=== PATIENT | male | born 1955 | race Caucasian/White ===

== ENCOUNTER → 2016-07-20 | Outpatient (CLI) | payer MEDICARE, OTHER ==
[2016-07-20 10:30] LABS: Blood Urea Nitrogen 11 mg/dL (9-20); Non-African American GFR(MDRD) >60 (>60 ml/min/1.73 sqM)
== END | disposition home or self-care (01) ==
LOC: LABWHC1 09:33
PROVIDERS: ATTEND Orthopaedic Surgery Orthopaedic Surgery of the Spine
DX: M54.2 Cervicalgia (principal); M54.12 Radiculopathy, cervical region; M43.22 Fusion of spine, cervical region; M25.511 Pain in right shoulder; M25.512 Pain in left shoulder; Z98.1 Arthrodesis status
CPT/HCPCS: 36415; 82565; 84520

== ENCOUNTER → 2020-09-10 | Outpatient (CLI) | payer MEDICARE ==
--- NOTE | 2020-09-10 14:04 | XR ---
EXAMINATION TYPE: XR wrist complete RT DATE OF EXAM: 09/10/2020 CLINICAL HISTORY: Pain in the right breast. History of surgery on the wrist 2 years ago for tendon re pair. TECHNIQUE: Frontal, lateral and oblique images of the right wrist are obtained. COMPARISON: No prior is available for comparison. FINDINGS: There is no evidence of acute fracture of the right wrist. There is widening of the scaphol unate joint space with sclerosis of the scaphoid bone. This is suggestive of scapholunate advanced co llapse with proximal migration of the capitate. There is narrowing of the radiocarpal joint space. Na rrowing of the carpometacarpal joint spaces. The distal radius and ulna are intact. IMPRESSION: 1. 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 There is sclerosis of the scaphoid. Osteoarthritic changes of the wrist.
== END | disposition home or self-care (01) ==
LOC: RADXRMAIN 13:33
PROVIDERS: ATTEND Nurse Practitioner
DX: M19.031 Primary osteoarthritis, right wrist (principal); M89.8X4 Other specified disorders of bone, hand

== ENCOUNTER 2020-12-21 17:20 | Emergency (ER) | payer MEDICARE ==
[2020-12-21 17:38] VITALS: RESP 18; TEMP 97.5
[2020-12-21] MEDS ORDERED: HYDROmorphone 1 MG/ML 1 ML SYRINGE IM STA (18:07)
[2020-12-21] MEDS ORDERED: KETOROLAC 15 MG/ML 1 ML VIAL IM STA (18:07)
--- NOTE | 2020-12-21 18:29 | ED ---
General Adult HPI - General Chief complaint: Recheck/Abnormal Lab/Rx Stated complaint: dislocated shoulder Time Seen by Provider: 12/21/20 17:53 Source: patient, RN notes reviewed, old records reviewed Mode of arrival: ambulatory Limitations: no limitations - History of Present Illness Initial comments: 65-year-old male presents with right shoulder pain. Patient was seen at outside hospital, diagnosed with a shoulder dislocation. He was sent home in a sling. He states he was taking her shirt off and believes he may have re-dislocated her shoulder. He has not had a previous dislocation prior to today. He states this didn't dislocate earlier while he was carrying some heavy items. No fall. Patient required sedation for dislocation reduction at outside hospital. - Related Data Home Medications Medication Instructions Recorded Confirmed Cyclobenzaprine [Flexeril] 10 mg PO TID PRN 11/26/13 12/05/15 Zolpidem [Ambien] 12.5 mg PO HS 11/26/13 12/05/15 Ibuprofen [Motrin] 800 mg PO Q6H PRN 12/03/15 12/05/15 Previous Rx's Medication Instructions Recorded HYDROcodone/APAP 10-325MG [[place] 1 tab PO Q6H PRN #90 tab 01/15/15 10-325] Cephalexin [Keflex] 500 mg PO Q8HR #15 cap 12/05/15 HYDROcodone/APAP 10-325MG [[place] 1 - 2 tab PO Q4-6H PRN #60 tab 12/05/15 10-325] Sennosides-Docusate Sodium 2 tab PO DAILY #30 tablet 12/05/15 [Senokot-S] Metoprolol Tartrate [Lopressor] 12.5 mg PO BID #60 dose 12/06/15 Allergies Allergy/AdvReac Type Severity Reaction Status Date / Time No Known Allergies Allergy Verified 12/21/20 17:36 Review of Systems ROS Statement: Those systems with pertinent positive or pertinent negative responses have been documented in the HPI. ROS Other: All systems not noted in ROS Statement are negative. Past Medical History Past Medical History: Cancer, Hyperlipidemia, Osteoarthritis (OA) Additional Past Medical History / Comment(s): "MELANOMA AND COLON CANCER-biopsy treatmentapproximately 3-4 years ago" History of Any Multi-Drug Resistant Organisms: None Reported Past Surgical History: Joint Replacement, Orthopedic Surgery Additional Past Surgical History / Comment(s): BILATERAL HIP REPLACEMENT , colonoscopy-POLYPECTOMY FOR CANCER" RIGHT SHOULDER,HEMORRHOIDECTOMY. MELANOMA LEFT HAND. Past Anesthesia/Blood Transfusion Reactions: No Reported Reaction Past Psychological History: No Psychological Hx Reported Smoking Status: Current every day smoker Past Alcohol Use History: None Reported Past Drug Use History: None Reported General Exam Limitations: no limitations General appearance: alert, in no apparent distress Head exam: Present: atraumatic, normocephalic Eye exam: Present: normal appearance, PERRL ENT exam: Present: normal exam Neck exam: Present: normal inspection. Absent: tenderness, meningismus Respiratory exam: Present: normal lung sounds bilaterally. Absent: respiratory distress, wheezes Cardiovascular Exam: Present: regular rate, normal rhythm GI/Abdominal exam: Present: soft. Absent: distended, tenderness, guarding Extremities exam: Absent: full ROM (Suspect anterior shoulder dislocation on the right. Distal pulses intact.) Course Vital Signs 12/21/20 17:36 Temperature 97.5 F L Pulse Rate 89 Respiratory 18 Rate Blood Pressure 189/96 O2 Sat by Pulse 99 Oximetry Procedures - Orthopedic Joint Reduction Joint #1 Consent Obtained: verbal consent Side: right Joint Reduction Location: shoulder Analgesia: other (IM Dilaudid) Shoulder Technique Used (if applicable): traction/counter-traction Post-Reduction Neuro Exam: intact Post-Reduction Vascular Exam: intact Post Reduction X-Ray Obtained: Yes Post Reduction X-Ray Results: reduced Splint Applied: Yes Patient Tolerated Procedure: well Medical Decision Making - Medical Decision Making 65-year-old male with anterior shoulder dislocation on the right. Patient given IM Dilaudid, direct manipulation and external rotation applied with satisfactory reduction. Patient is placed in a sling. He is given orthopedic follow-up. Disposition Clinical Impression: Shoulder dislocation, recurrent Disposition: HOME SELF-CARE Condition: Good Instructions (If sedation given, give patient instructions): Shoulder Dislocation (ED) Is patient prescribed a controlled substance at d/c from ED?: No Referrals: Duy Hanson MD [Primary Care Provider] - 1-2 days Momo Pereira DO [Doctor of Osteopathic Medicine] - 1-2 days Time of Disposition: 18:48
--- NOTE | 2020-12-21 18:36 | XR ---
EXAMINATION TYPE: XR shoulder complete RT DATE OF EXAM: 12/21/2020 COMPARISON: 12/24/2014 HISTORY: Dislocation. Pain. TECHNIQUE: 3 views FINDINGS: There is anterior dislocation of the glenohumeral joint. I see no fracture line. There is s light widening of the AC joint space. IMPRESSION: Anterior dislocation of the shoulder joint is a change compared to old exam.
[2020-12-21 19:07] VITALS: BP 166/96; PULSE 92
--- NOTE | 2020-12-21 19:19 | XR ---
EXAMINATION TYPE: XR shoulder limited RT DATE OF EXAM: 12/21/2020 COMPARISON: Today HISTORY: Post reduction TECHNIQUE: Single view FINDINGS: There appears to be anatomic position of the glenohumeral joint. I see no fracture line. IMPRESSION: Anatomic reduction. No fracture seen. Mild widening of the AC joint space unchanged.
== END 2020-12-21 19:00 | disposition home or self-care (01) ==
LOC: EC 17:20
DX: S43.004A Unspecified dislocation of right shoulder joint, initial encounter (principal); M19.90 Unspecified osteoarthritis, unspecified site; E78.5 Hyperlipidemia, unspecified; F17.200 Nicotine dependence, unspecified, uncomplicated; Z85.820 Personal history of malignant melanoma of skin; Z85.038 Personal history of other malignant neoplasm of large intestine; Z96.643 Presence of artificial hip joint, bilateral; X58.XXXA Exposure to other specified factors, initial encounter
CPT/HCPCS: 99283; 96372; 23650; 73020; 73030; J1170; J1885

== ENCOUNTER 2021-01-19 01:44 | Emergency (ER) | payer MEDICARE ==
[2021-01-19 02:05] VITALS: RESP 18; TEMP 97
--- NOTE | 2021-01-19 03:02 | XR ---
EXAMINATION TYPE: XR shoulder limited RT DATE OF EXAM: 01/19/2021 COMPARISON: 12/21/2020 HISTORY: Right shoulder pain TECHNIQUE: 2 views FINDINGS: There is anterior dislocation of the glenohumeral joint. There is no sign of a fracture. Th ere is some widening of the AC joint space. IMPRESSION: Anterior shoulder joint dislocation is new compared to old exam. There is some widening of the AC joint consistent with old ligamentous injury without change.
[2021-01-19] MEDS ORDERED: PROPOFOL 10 MG/ML 20 ML VIAL IV ONE (04:09)
[2021-01-19] MEDS ORDERED: SODIUM CHLORIDE 0.9% 500 ML 500 ML IV STA (04:09)
[2021-01-19] MEDS ORDERED: HYDROmorphone 1 MG/ML 1 ML SYRINGE IM STA (04:10)
--- NOTE | 2021-01-19 04:53 | ED ---
Upper Extremity HPI - General Chief Complaint: Extremity Injury, Upper Stated Complaint: RT shoulder dislocation Time Seen by Provider: 01/19/21 04:08 Source: patient, RN notes reviewed, old records reviewed Mode of arrival: wheelchair Limitations: no limitations - History of Present Illness Initial Comments: This is a 65-year-old male to the emergency department today. Patient presents today for evaluation of recurrent right shoulder dislocation with history of right shoulder dislocation and right shoulder surgery. Patient states he was sleeping in bed when he woke up with his shoulder dislocated. Pain is severe with inability to move right shoulder no other complaints or injuries. MD Complaint: Injury to:: right, shoulder -: hour(s) Other Extremity Injury: Shoulder: Right Other Injuries: none Handedness: right Place: home Severity scale (1-10): 10 Improves With: none Worsens With: none Context: direct blow (Occurred fall sleeping) Associated Symptoms: denies other symptoms Treatments Prior to Arrival: splint - Related Data Home Medications Medication Instructions Recorded Confirmed Cyclobenzaprine [Flexeril] 10 mg PO TID PRN 11/26/13 12/05/15 Zolpidem [Ambien] 12.5 mg PO HS 11/26/13 12/05/15 Ibuprofen [Motrin] 800 mg PO Q6H PRN 12/03/15 12/05/15 Previous Rx's Medication Instructions Recorded HYDROcodone/APAP 10-325MG [[place] 1 tab PO Q6H PRN #90 tab 01/15/15 10-325] Cephalexin [Keflex] 500 mg PO Q8HR #15 cap 12/05/15 HYDROcodone/APAP 10-325MG [[place] 1 - 2 tab PO Q4-6H PRN #60 tab 12/05/15 10-325] Sennosides-Docusate Sodium 2 tab PO DAILY #30 tablet 12/05/15 [Senokot-S] Metoprolol Tartrate [Lopressor] 12.5 mg PO BID #60 dose 12/06/15 Allergies Allergy/AdvReac Type Severity Reaction Status Date / Time No Known Allergies Allergy Verified 01/27/21 15:30 Review of Systems ROS Statement: Those systems with pertinent positive or pertinent negative responses have been documented in the HPI. ROS Other: All systems not noted in ROS Statement are negative. Past Medical History Past Medical History: Cancer, Hyperlipidemia, Osteoarthritis (OA) Additional Past Medical History / Comment(s): "MELANOMA AND COLON CANCER-biopsy treatmentapproximately 3-4 years ago" History of Any Multi-Drug Resistant Organisms: None Reported Past Surgical History: Joint Replacement, Orthopedic Surgery Additional Past Surgical History / Comment(s): BILATERAL HIP REPLACEMENT , colonoscopy-POLYPECTOMY FOR CANCER" RIGHT SHOULDER,HEMORRHOIDECTOMY. MELANOMA LEFT HAND. Past Anesthesia/Blood Transfusion Reactions: No Reported Reaction Past Psychological History: No Psychological Hx Reported Smoking Status: Current every day smoker Past Alcohol Use History: None Reported Past Drug Use History: None Reported General Exam Limitations: no limitations General appearance: alert, in no apparent distress Head exam: Present: atraumatic, normocephalic, normal inspection Eye exam: Present: normal appearance, PERRL, EOMI. Absent: scleral icterus, conjunctival injection, periorbital swelling ENT exam: Present: normal exam, mucous membranes moist Neck exam: Present: normal inspection. Absent: tenderness, meningismus, lymphadenopathy Respiratory exam: Present: normal lung sounds bilaterally. Absent: respiratory distress, wheezes, rales, rhonchi, stridor Cardiovascular Exam: Present: regular rate, normal rhythm, normal heart sounds. Absent: systolic murmur, diastolic murmur, rubs, gallop, clicks GI/Abdominal exam: Present: soft, normal bowel sounds. Absent: distended, tenderness, guarding, rebound, rigid Extremities exam: Present: normal inspection, tenderness, normal capillary refill, other (Obvious right shoulder dislocation). Absent: full ROM, pedal edema, joint swelling, calf tenderness Back exam: Present: normal inspection Neurological exam: Present: alert, oriented X3, CN II-XII intact Psychiatric exam: Present: normal affect, normal mood Skin exam: Present: warm, dry, intact, normal color. Absent: rash Course Vital Signs 01/19/21 01/19/21 01/19/21 02:02 04:48 04:50 Temperature 97.0 F L Pulse Rate 100 78 74 Respiratory 18 18 18 Rate Blood Pressure 161/100 157/102 O2 Sat by Pulse 97 99 99 Oximetry 01/19/21 01/19/21 01/19/21 04:55 05:00 05:15 Temperature Pulse Rate 103 H 79 77 Respiratory 18 18 18 Rate Blood Pressure 106/76 114/83 147/88 O2 Sat by Pulse 99 99 98 Oximetry 01/19/21 05:45 Temperature Pulse Rate 87 Respiratory 18 Rate Blood Pressure 129/83 O2 Sat by Pulse 98 Oximetry - Reevaluation(s) Reevaluation #1: Medical record is reviewed Patient symptoms are significantly improved here in the ER Patient informed results and questions answered Procedures - Orthopedic Joint Reduction Joint #1 Consent Obtained: verbal consent Side: right Joint Reduction Location: shoulder Analgesia: procedural sedation Shoulder Technique Used (if applicable): traction/counter-traction, scapula manipulation, external rotation Post-Reduction Neuro Exam: intact Post-Reduction Vascular Exam: intact Post Reduction X-Ray Obtained: Yes Post Reduction X-Ray Results: reduced Splint Applied: Yes Patient Tolerated Procedure: well - Procedural Sedation Procedural Sedation Start Time: 04:30 Procedural Sedation Stop Time: 05:00 Indications: fracture/dislocation reduction ASA Class: I Mallampati Airway Score: 1 Preparation: ekg monitor applied, pulse oximeter, capnometry used IV Propofol Dose (mgs): 200 Complications: none Interventions: oxygen applied Patient Tolerated Procedure: well Medical Decision Making - Medical Decision Making 65 male to the emergency department stay. Patient Dese for evaluation of shoulder pain significant shoulder pain right shoulder pain secondary dislocation shoulder relocated and patient can be discharged home - Radiology Data Radiology results: report reviewed (X-ray shows shoulder dislocation repeat shows relocation), image reviewed Disposition Clinical Impression: Shoulder dislocation, recurrent, Dislocation of shoulder region, Recurrent dislocation, right shoulder Disposition: HOME SELF-CARE Condition: Good Instructions (If sedation given, give patient instructions): Shoulder Dislocation (ED), Moderate Sedation (ED) Is patient prescribed a controlled substance at d/c from ED?: No Referrals: Duy Hanson MD [Primary Care Provider] - 1-2 days
--- NOTE | 2021-01-19 05:35 | XR ---
EXAM: XR Right Shoulder Complete, 2 or More Views CLINICAL HISTORY: ITS.REASON XR Reason: Dislocation/ Surgical correction TECHNIQUE: Two or more views of the right shoulder. COMPARISON: X-ray of the right shoulder performed earlier same day. FINDINGS: Interval reduction of previously seen right shoulder dislocation. Right humeral head now within the glenoid. IMPRESSION: Interval reduction of previously seen right shoulder dislocation.
[2021-01-19 05:55] VITALS: BP 129/83; PULSE 87
== END 2021-01-19 06:02 | disposition home or self-care (01) ==
LOC: EC 01:44
DX: S43.004A Unspecified dislocation of right shoulder joint, initial encounter (principal); E78.5 Hyperlipidemia, unspecified; M19.90 Unspecified osteoarthritis, unspecified site; F17.200 Nicotine dependence, unspecified, uncomplicated; Z85.038 Personal history of other malignant neoplasm of large intestine; X58.XXXA Exposure to other specified factors, initial encounter
CPT/HCPCS: 99283; 96372; 23650; 99152; 99153; 73020; 73030; L3670; J1170; J2704

== ENCOUNTER 2021-01-27 15:05 | Emergency (ER) | payer MEDICARE ==
[2021-01-27 15:29] VITALS: TEMP 97.9
--- NOTE | 2021-01-27 15:46 | XR ---
EXAMINATION TYPE: XR shoulder limited RT DATE OF EXAM: 01/27/2021 CLINICAL HISTORY: Pain, suspected dislocation TECHNIQUE: 2 views of the right shoulder are attempted. COMPARISON: Right shoulder x-ray 8 days ago. FINDINGS: There is recurrent anterior dislocation with inferior medial positioning of the humeral he ad relative to glenoid. The [place] osseous structures are demineralized. Moderate AC joint widening redemonstrated. The visualized ribs are intact . IMPRESSION: There is recurrent anterior glenohumeral joint dislocation.
[2021-01-27] MEDS ORDERED: PROPOFOL 10 MG/ML 20 ML VIAL IV ONE (17:18)
[2021-01-27] MEDS ORDERED: HYDROmorphone 1 MG/ML 1 ML SYRINGE IM STA (17:20)
--- NOTE | 2021-01-27 17:41 | ED ---
General Adult HPI - General Chief complaint: Extremity Injury, Upper Stated complaint: R shoulder pain Time Seen by Provider: 01/27/21 17:17 Source: patient Mode of arrival: ambulatory Limitations: no limitations - History of Present Illness Initial comments: Dictation was produced using [employer] dictation software. please excuse any grammatical, word or spelling errors. Chief Complaint: 65-year-old male with frequent shoulder dislocations presents to the emergency department for right shoulder dislocation History of Present Illness: 65-year-old male at 3 PM today he was cleaning back one of his vehicle when he dislocated his right shoulder. Patient has history of with rotator cuff muscles. This is his fourth dislocation this month he reports. Denies any numbness and only to the extremity. Patient was told that he needs to get a total shoulder replacement in order to prevent any recurrent shoulder dislocations. The ROS documented in this emergency department record has been reviewed and confirmed by me. Those systems with pertinent positive or negative responses have been documented in the HPI. All other systems are other negative and/or noncontributory. PHYSICAL EXAM: General Impression: Alert and oriented x3, acute distress secondary her pain HEENT: Normocephalic atraumatic, extra-ocular movements intact, pupils equal and reactive to light bilaterally, mucous membranes moist. Cardiovascular: Heart regular rate and rhythm Chest: Able to complete full sentences, no retractions, no tachypnea Abdomen: abdomen soft, non-tender, non-distended, no organomegaly Musculoskeletal: Pulses present and equal in all extremities, no peripheral edema, positive right sulcus sign at the shoulder Motor: no focal deficits noted Neurological: CN II-XII grossly intact, no focal motor or sensory deficits noted Skin: Intact with no visualized rashes ED course: 65-year-old male presents to the emergency department for shoulder dislocation. He has strong history of shoulder dislocations. Patient is given 2 mg of IM Dilaudid. Reduction was attempted without sedation and unsuccessful. Vital signs upon arrival are within acceptable. Procedural sedation was use to reduce patient's shoulder dislocation. Post reduction x-rays unremarkable. Shows successful reduction. Patient placed in right upper extremity sling. Patient advised to follow-up with his orthopedic doctor. - Related Data Home Medications Medication Instructions Recorded Confirmed Cyclobenzaprine [Flexeril] 10 mg PO TID PRN 11/26/13 12/05/15 Zolpidem [Ambien] 12.5 mg PO HS 11/26/13 12/05/15 Ibuprofen [Motrin] 800 mg PO Q6H PRN 12/03/15 12/05/15 Previous Rx's Medication Instructions Recorded HYDROcodone/APAP 10-325MG [[place] 1 tab PO Q6H PRN #90 tab 01/15/15 10-325] Cephalexin [Keflex] 500 mg PO Q8HR #15 cap 12/05/15 HYDROcodone/APAP 10-325MG [[place] 1 - 2 tab PO Q4-6H PRN #60 tab 12/05/15 10-325] Sennosides-Docusate Sodium 2 tab PO DAILY #30 tablet 12/05/15 [Senokot-S] Metoprolol Tartrate [Lopressor] 12.5 mg PO BID #60 dose 12/06/15 Allergies Allergy/AdvReac Type Severity Reaction Status Date / Time No Known Allergies Allergy Verified 01/27/21 15:30 Review of Systems ROS Statement: Those systems with pertinent positive or pertinent negative responses have been documented in the HPI. ROS Other: All systems not noted in ROS Statement are negative. Past Medical History Past Medical History: Cancer, Hyperlipidemia, Osteoarthritis (OA) Additional Past Medical History / Comment(s): "MELANOMA AND COLON CANCER-biopsy treatmentapproximately 3-4 years ago" History of Any Multi-Drug Resistant Organisms: None Reported Past Surgical History: Joint Replacement, Orthopedic Surgery Additional Past Surgical History / Comment(s): BILATERAL HIP REPLACEMENT , colonoscopy-POLYPECTOMY FOR CANCER" RIGHT SHOULDER,HEMORRHOIDECTOMY. MELANOMA LEFT HAND. Past Anesthesia/Blood Transfusion Reactions: No Reported Reaction Past Psychological History: No Psychological Hx Reported Smoking Status: Current every day smoker Past Alcohol Use History: None Reported Past Drug Use History: None Reported General Exam Limitations: no limitations Course Vital Signs 01/27/21 01/27/21 01/27/21 15:27 18:08 18:10 Temperature 97.9 F Pulse Rate 79 77 87 Respiratory 19 18 18 Rate Blood Pressure 174/100 162/90 162/93 O2 Sat by Pulse 98 98 97 Oximetry 01/27/21 01/27/21 01/27/21 18:12 18:40 19:04 Temperature Pulse Rate 82 74 77 Respiratory 18 18 18 Rate Blood Pressure 160/88 157/98 147/94 O2 Sat by Pulse 97 98 97 Oximetry Procedures - Orthopedic Joint Reduction Joint #1 Consent Obtained: verbal consent, written consent Side: right Joint Reduction Location: shoulder Analgesia: procedural sedation Shoulder Technique Used (if applicable): external rotation Post-Reduction Neuro Exam: intact Post-Reduction Vascular Exam: intact Post Reduction X-Ray Obtained: Yes Post Reduction X-Ray Results: reduced Splint Applied: Yes Patient Tolerated Procedure: well - Procedural Sedation Procedural Sedation Start Time: 18:08 Procedural Sedation Stop Time: 18:12 Indications: fracture/dislocation reduction ASA Class: II Mallampati Airway Score: 2 Preparation: monitoring analyst applied, pulse oximeter, supplemental O2 applied IV Propofol Dose (mgs): 75 Complications: none Patient Tolerated Procedure: well Disposition Clinical Impression: Shoulder dislocation Disposition: HOME SELF-CARE Condition: Good Instructions (If sedation given, give patient instructions): Shoulder Dislocation (ED) Is patient prescribed a controlled substance at d/c from ED?: No Referrals: Duy Hanson MD [Primary Care Provider] - 1-2 days
[2021-01-27 18:15] VITALS: RESP 18
--- NOTE | 2021-01-27 18:42 | XR ---
EXAMINATION TYPE: XR shoulder limited RT DATE OF EXAM: 01/27/2021 COMPARISON: Today HISTORY: Post reduction TECHNIQUE: Single view FINDINGS: There is anatomic position of the glenohumeral joint. I see no fracture line. IMPRESSION: Anatomic reduction of the right shoulder joint.
[2021-01-27 19:46] VITALS: BP 142/72; PULSE 74
== END 2021-01-27 19:46 | disposition home or self-care (01) ==
LOC: EC 15:05
DX: S43.004A Unspecified dislocation of right shoulder joint, initial encounter (principal); E78.5 Hyperlipidemia, unspecified; M19.90 Unspecified osteoarthritis, unspecified site; F17.200 Nicotine dependence, unspecified, uncomplicated; Z79.1 Long term (current) use of non-steroidal anti-inflammatories (NSAID); Z79.899 Other long term (current) drug therapy; X50.1XXA Overexertion from prolonged static or awkward postures, initial encounter
CPT/HCPCS: 73020; 23650; 99283; 96372; J1170; J2704

== ENCOUNTER 2021-02-27 14:59 | Emergency (ER) | payer MEDICARE ==
[2021-02-27 15:23] VITALS: TEMP 98.6
--- NOTE | 2021-02-27 15:45 | ED ---
General Adult HPI - General Chief complaint: Extremity Problem,Nontraumatic Stated complaint: R Shoulder Dislocated Time Seen by Provider: 02/27/21 15:26 Source: patient Mode of arrival: ambulatory Limitations: no limitations - History of Present Illness Initial comments: Dictation was produced using [employer] dictation software. please excuse any gra mmatical, word or spelling errors. Chief Complaint: 65-year-old male presents emergency department for shoulder dislocation History of Present Illness: Patient 65-year-old male presents to the emergency department for shoulder dislocation. Patient has had multiple and attending several shoulder dislocations within the last several months. I see this patient before for same issue. Patient states he was sitting up past her seat and tried to put his arm up on the windowsill. He brought his arm back down and his shoulder popped out of place. Prescription approximately 20 minutes ago. He states that next month he has a total shoulder replacement surgery to prevent any further shoulder dislocations. The ROS documented in this emergency department record has been reviewed and confirmed by me. Those systems with pertinent positive or negative responses have been documented in the HPI. All other systems are other negative and/or noncontributory. PHYSICAL EXAM: General Impression: Alert and oriented x3, not in acute distress HEENT: Normocephalic atraumatic, extra-ocular movements intact, pupils equal and reactive to light bilaterally, mucous membranes moist. Cardiovascular: Heart regular rate and rhythm Chest: Able to complete full sentences, no retractions, no tachypnea Abdomen: abdomen soft, non-tender, non-distended, no organomegaly Musculoskeletal: Pulses present and equal in all extremities, no peripheral edema, deep sulcus sign to the right anterior shoulder Motor: no focal deficits noted Neurological: CN II-XII grossly intact, no focal motor or sensory deficits noted Skin: Intact with no visualized rashes Psych: Normal affect and mood ED course: 65-year-old male presents emergency department for recurrent shoulder dislocation. Vital signs upon arrival are within acceptable limits. X-ray shows right anterior shoulder dislocation. Procedural sedation was performed and shoulder dislocation is reduced. Patient observed in the emergency Depa rtment until sedation wore off. Patient stable for discharge. - Related Data Home Medications Medication Instructions Recorded Confirmed Cyclobenzaprine [Flexeril] 10 mg PO TID PRN 11/26/12/05/15 Zolpidem [Ambien] 12.5 mg PO HS 11/26/13 12/05/15 Ibuprofen [Motrin] 800 mg PO Q6H PRN 12/03/15 12/05/15 Previous Rx's Medication Instructions Recorded HYDROcodone/APAP 10-325MG [[place] 1 tab PO Q6H PRN #90 tab 01/15/15 10-325] Cephalexin [Keflex] 500 mg PO Q8HR #15 cap 12/05/15 HYDROcodone/APAP 10-325MG [[place] 1 - 2 tab PO Q4-6H PRN #60 tab 12/05/15 10-325] Sennosides-Docusate Sodium 2 tab PO DAILY #30 tablet 12/05/15 [Senokot-S] Metoprolol Tartrate [Lopressor] 12.5 mg PO BID #60 dose 12/06/15 Allergies Allergy/AdvReac Type Severity Reaction Status Date / Time No Known Allergies Allergy Verified 02/27/21 15:24 Review of Systems ROS Statement: Those systems with pertinent positive or pertinent negative responses have been documented in the HPI. ROS Other: All systems not noted in ROS Statement are negative. Past Medical History Past Medical History: Cancer, Hyperlipidemia, Osteoarthritis (OA) Additional Past Medical History / Comment(s): "MELANOMA AND COLON CANCER-biopsy treatmentapproximately 3-4 years ago" History of Any Multi-Drug Resistant Organisms: None Reported Past Surgical History: Joint Replacement, Orthopedic Surgery Additional Past Surgical History / Comment(s): BILATERAL HIP REPLACEMENT , colonoscopy-POLYPECTOMY FOR CANCER" RIGHT SHOULDER,HEMORRHOIDECTOMY. MELANOMA LEFT HAND. Past Anesthesia/Blood Transfusion Reactions: No Reported Reaction Past Psychological History: No Psychological Hx Reported Smoking Status: Current every day smoker Past Alcohol Use History: None Reported Past Drug Use History: None Reported General Exam Limitations: no limitations Course Vital Signs 02/27/21 02/27/21 02/27/21 15:21 16:08 16:09 Temperature 98.6 F Pulse Rate 92 85 86 Respiratory 19 18 18 Rate Blood Pressure 158/102 139/85 142/96 O2 Sat by Pulse 98 98 99 Oximetry 02/27/21 02/27/21 16:14 16:29 Temperature Pulse Rate 82 71 Respiratory 18 18 Rate Blood Pressure 147/80 137/93 O2 Sat by Pulse 99 98 Oximetry Procedures - Orthopedic Joint Reduction Joint #1 Consent Obtained: verbal consent, written consent Side: right Joint Reduction Location: shoulder Analgesia: procedural sedation Shoulder Technique Used (if applicable): traction/counter-traction Post-Reduction Neuro Exam: intact Post-Reduction Vascular Exam: intact Post Reduction X-Ray Obtained: Yes Post Reduction X-Ray Results: reduced Splint Applied: Yes Patient Tolerated Procedure: well - Procedural Sedation Procedural Sedation Start Time: 16:08 Procedural Sedation Stop Time: 16:09 Indications: fracture/dislocation reduction ASA Class: II Mallampati Airway Score: 2 Preparation: monitor car operator applied, pulse oximeter, capnometry used, supplemental O2 applied, suction/airway equipment at bedside, IV secured IV Propofol Dose (mgs): 60 Complications: none Patient Tolerated Procedure: well Disposition Clinical Impression: Shoulder dislocation, recurrent Disposition: HOME SELF-CARE Condition: Fair Instructions (If sedation given, give patient instructions): Moderate Sedation (ED), Shoulder Dislocation (ED) Is patient prescribed a controlled substance at d/c from ED?: No Referrals: Floyd Kelly MD [STAFF PHYSICIAN] - 1-2 days
--- NOTE | 2021-02-27 15:58 | XR ---
EXAMINATION TYPE: XR shoulder limited RT DATE OF EXAM: 02/27/2021 COMPARISON: 01/27/2021 HISTORY: Pain TECHNIQUE: 2 view FINDINGS: There is anterior dislocation of the glenohumeral joint. There is some separation of the AC joint space. There is no evidence for fracture. IMPRESSION: Anterior shoulder joint dislocation.
[2021-02-27] MEDS: PROPOFOL 10 MG/ML 20 ML VIAL IV ONE (16:08)
[2021-02-27 16:16] VITALS: RESP 18
--- NOTE | 2021-02-27 16:43 | XR ---
EXAMINATION TYPE: XR shoulder limited RT DATE OF EXAM: 02/27/2021 COMPARISON: Today HISTORY: Post reduction TECHNIQUE: Single view FINDINGS: There is anatomic position of the glenohumeral joint. I see no fracture line. There is oste openia. There is subacromial joint space narrowing. IMPRESSION: Anatomic reduction.
[2021-02-27 17:59] VITALS: BP 144/86; PULSE 76
== END 2021-02-27 17:30 | disposition home or self-care (01) ==
LOC: EC 14:59
DX: M24.411 Recurrent dislocation, right shoulder (principal); E78.5 Hyperlipidemia, unspecified; M19.90 Unspecified osteoarthritis, unspecified site; F17.200 Nicotine dependence, unspecified, uncomplicated; Z79.1 Long term (current) use of non-steroidal anti-inflammatories (NSAID); Z79.899 Other long term (current) drug therapy
CPT/HCPCS: 73020; 23650; 99283; J2704

== ENCOUNTER → 2021-03-09 | Outpatient (CLI) | payer MEDICARE | END | disposition home or self-care (01) | LOC: LABWHC1 11:00 | PROVIDERS: ATTEND Family Medicine | DX: I10 Essential (primary) hypertension (principal) | CPT/HCPCS: 36415; 93005 ==

== ENCOUNTER 2021-03-19 08:50 | Day surgery (SDC) | payer MEDICARE ==
[2021-03-11 10:14] VITALS: BMI 26.3
[~2021-03-19 08:50] MED LIST: ACETAMINOPHEN TAB 500 MG TAB PO PRN; DEXAMETHASONE SOD PHOSPHATE 4 MG/ML 1 ML VIAL IV ONE; GABAPENTIN 300 MG CAP PO PRN; LIDOCAINE 1% (10MG/ML) FOR IV START INTRADERMA PRN; MELOXICAM 7.5 MG TAB PO PRN; ONDANSETRON 4 MG/2 ML VIAL IVP ONE; ONDANSETRON 4 MG/2 ML VIAL IVP PRN; TRANEXAMIC ACID 1,000 MG in SODIUM CHLORIDE 0.9% 100 ML IVPB PRN
[2021-03-19] MEDS: LACTATED RINGERS 1,000 ML IV SCH ×3 (09:32→23:19)
[2021-03-19] MEDS ORDERED: MIDAZOLAM 2 MG/2 ML VIAL IVP ONE (10:08)
[2021-03-19] MEDS ORDERED: ONDANSETRON 4 MG/2 ML VIAL IVP PRN (10:31)
[2021-03-19] MEDS ORDERED: HYDROmorphone 0.2 MG/1 ML SYRINGE IVP PRN (10:31)
[2021-03-19] MEDS ORDERED: PROCHLORPERAZINE SUPPOSITORY 25 MG SUPP RECTAL PRN (10:31)
[2021-03-19] MEDS ORDERED: hydrOXYzine pamoate 25 MG CAP PO PRN (10:31)
[2021-03-19] MEDS ORDERED: diphenhydrAMINE 25 MG CAP PO PRN (10:31)
[2021-03-19] MEDS ORDERED: METOCLOPRAMIDE 5 MG/ML 2 ML VIAL IVP PRN (10:31)
[2021-03-19] MEDS ORDERED: HYDROmorphone 0.5 MG/0.5 ML SYRINGE IVP PRN ×2 (10:31)
[2021-03-19] MEDS ORDERED: SENNOSIDES-DOCUSATE SODIUM 1 EACH TAB PO PRN (10:31)
[2021-03-19] MEDS ORDERED: oxyCODONE-APAP 7.5-325MG 1 EACH TAB PO PRN ×2 (10:35)
[2021-03-19] MEDS ORDERED: SODIUM CHLORIDE 0.9% 100 ML BAG ONE (10:59)
[2021-03-19] MEDS ORDERED: ROCURONIUM 10 MG/ML (5 ML VIAL) IV ONE (10:59)
[2021-03-19] MEDS ORDERED: SUGAMMADEX SODIUM 500 MG/5 ML SDV IV ONE (10:59)
[2021-03-19] MEDS ORDERED: PHENYLEPHRINE-0.9% NACL SYG 1,000 MCG/10 ML SYRINGE ONE (10:59)
[2021-03-19] MEDS ORDERED: ROPIVACAINE 5 MG/ML 30 ML VIAL ONE (10:59)
[2021-03-19] MEDS ORDERED: SUCCINYLCHOLINE CHLORIDE 100 MG/5 ML SYR IV ONE (10:59)
[2021-03-19] MEDS ORDERED: fentaNYL (PF) 50 MCG/ML 2 ML AMP ONE (10:59)
[2021-03-19] MEDS ORDERED: TRANEXAMIC ACID 1,000 MG/10 ML VIAL ONE (10:59)
[2021-03-19] MEDS ORDERED: PROPOFOL 10 MG/ML 20 ML VIAL IV ONE (10:59)
[2021-03-19] MEDS ORDERED: VANCOMYCIN 1,000 MG VIAL MISCELLANE ONE (11:41)
--- NOTE | 2021-03-19 12:47 | P.ANPRN ---
Procedure Note - Anesthesia - Nerve Block Performed Right Interscalene Single Time Out Performed: Yes ([id number]) Date of Procedure: 03/19/21 Procedure Start Time: 10:08 Procedure Stop Time: 10:12 Location of Patient: PreOp Indication: Acute Post-Operative Pain, Requested by Surgeon Specifically requested for management of pain by DrJaye: Floyd Kelly Sedation Type: Sedate with meaningful contact maintained Preparation: Sterile Prep Position: Supine Catheter: None Needle Types: Pajunk Needle Gauge: 21 Ultrasound used to visualize needle placement: Yes Ultrasound used to observe medication spread: Yes Injectate: 0.5% Ropivacaine (see comment for volume) (30cc) Blood Aspirated: No Pain Paresthesia on Injection Noted: No Resistance on Injection: Normal Image Stored and Saved: Yes Events: Uneventful and Well Tolerated
--- NOTE | 2021-03-19 13:20 | XR ---
EXAMINATION TYPE: XR shoulder limited RT DATE OF EXAM: 03/19/2021 COMPARISON: 02/27/2021 HISTORY: 65-year-old male postoperative evaluation TECHNIQUE: Single portable AP view FINDINGS: Images show placement of reverse right total shoulder arthroplasty. Both glenosphere and humeral stem components of the prosthesis appear well seated without periprosthetic fracture. Alignment appears a ppropriate. Soft tissue air related to recent operation. A surgical drain is present. IMPRESSION: Uncomplicated postoperative appearance reverse right total shoulder arthroplasty.
[2021-03-19] MEDS: HYDROmorphone 0.5 MG/0.5 ML SYRINGE IVP PRN ×2 (13:24→13:37)
[2021-03-19] MEDS ORDERED: LACTATED RINGERS 1,000 ML IV ONE (15:28)
--- NOTE | 2021-03-19 21:28 | OP ---
OPERATIVE REPORT DATE OF OPERATION: 03/19/2021 SURGEON: Floyd Kelly MD. DINKEY PRESS OPERATOR: [employer]o [place]. PREOPERATIVE DIAGNOSIS: Right shoulder advanced rotator cuff arthropathy. POSTOPERATIVE DIAGNOSIS: Right shoulder advanced rotator cuff arthropathy. OPERATION: Right reverse total shoulder arthroplasty. ANESTHESIA: General endotracheal. ESTIMATED BLOOD LOSS: Was 150 mL. DRAINS: One deep drain. COMPLICATIONS: None apparent. DISPOSITION: Postanesthesia care unit. INDICATIONS: Mr. Acevedo is a very pleasant 65-year-old male with longstanding right shoulder pain. Workup including x-rays, MRI revealed advanced rotator cuff arthrosis of the right shoulder. At this point, I felt that he has failed conservative management. He would like to proceed with operative intervention. Risks of procedure were discussed with him in detail. The risks include, but are not limited to risk of infection, nerve damage, bleeding, pain, instability in the shoulder, loosening of the implants and deep infection. There is also small risk of deep vein thrombosis which could lead to fatal pulmonary embolism. The patient understands these risks. All his questions with regard to the risks of procedure were answered to his satisfaction. Appropriate informed consent was obtained. DESCRIPTION OF THE PROCEDURE: Patient identified in preoperative holding area. Surgical site was marked by both the patient and myself. He was given 2 grams of Ancef IV for prophylactic purposes. He was then transported to the operative suite, placed supine on the operative table. General anesthetic was then administered and dosed per the anesthesia without apparent complication. Examination under anesthesia of the right shoulder was then performed. He had elevation to 150 degrees. External rotation at the side was to 60 degrees. He had anterior translation of the humeral head over the anterior rim of the glenoid. He was then placed into the beach chair position well-padded in preparation for surgery. Great care was taken to ensure the cervical spine was in neutral alignment well-padded and maintained that way throughout the operative procedure. His legs were appropriately padded as well. The patient's right upper extremity was then prepped and draped in the usual sterile fashion. Standard surgical pause undertaken to ensure that we were operating on the correct site and that appropriate preoperative antibiotics were given. All staff were in agreement we proceeded. The acromion, AC joint, clavicle and coracoid were marked with a surgical pen. A planned incision starting at the level of the clavicle and extending distally over the deltopectoral interval approximately 1 cm lateral to the coracoid was marked with a surgical pen. The incision was then made with a 10 blade scalpel. Dissection carried down sharply to the deltoid fascia. Hemostasis was achieved with electrocautery. The deltopectoral interval was identified at the level of the clavicle. A small band retractor was placed onto the proximal deltoid. I then released the deltoid fascia on the lateral aspect of the cephalic vein. The cephalic vein was protected and left in its bed medially. I then identified the clavipectoral fascia. This was incised proximally to the level of the coracoacromial ligament. The coracoacromial ligament was left intact. I then used my finger to spread the interval between the conjoined tendon. The subscapularis was completely torn off the lesser tuberosity and retracted. It was absent in fact. I then felt for the axillary nerve which was readily palpable. I then cleared the subacromial and subdeltoid spaces of bursal and scar tissue. I then utilized a Brown retractor to hold the deltoid and expose the humeral head. As noted, the lesser tuberosity was completely devoid of any attachment of the subscapularis. In fact, he had no rotator cuff attachment whatsoever on the lesser or greater tuberosity. The biceps had also traumatically ruptured and was absent. I then released the capsule inferiorly in a lazy-S fashion approximately along the . I then continued to release the capsule inferiorly on the humeral neck in a vertical fashion to approximately the 6 o'clock position. Great care was taken to ensure that the capsule was always visualized as it was released as to avoid injuring the axillary nerve. I then brought in the [employer] leadership program intern with the arm externally rotated and abducted. I continued to release the capsule inferomedially to approximately 4 o'clock position. I then proceeded with preparation of the humerus. I removed all the goat's bermeo osteophytes. I then removed the subchondral plate from the superior aspect of the humeral head utilizing a large rongeur. Then utilized starting reamer to gain access to the humeral canal. This was approximately 1 cm medial to the prior rotator cuff insertion 1 cm posterior to the bicipital groove. I then prepared the humeral canal with hand reaming. I started with a 6 mm reamer and incrementally increased until firm resistance was encountered with a 12 mm reamer. The reamer handle was then left in place. I then utilized a humeral resection guide set at 30 degrees of retrotorsion. The cutting block was then set at the insertion of the prior insertion of the rotator cuff. I then proceed to osteotomize the humeral head with an oscillating saw. I then removed the resection guide and completed the osteotomy. I then proceeded with trial stem placement. I then started the broach with size 8 broach and incrementally increased up to a size 12 broach. The 12 broach was then left in place. I then proceeded as noted earlier, the humeral head was completely devoid of any attachment of the rotator cuff. The Bhattman retractor was then placed on the posterior glenoid rim. The arm was then placed approximately 70-80 degrees of abduction and in slight flexion on a [place] stand. I then proceeded to remove the hypertrophic labrum to definitively identify the actual glenoid. I then utilized a mini base plate guide. This was placed. This sized very nicely to his glenoid. The starting pin was then placed in the center of the glenoid approximately 10 degrees of inferior tilt. I then over-reamed the starting pin. I then had the sales representative girls' apparel open a Biomet mini base plate. This was then impacted onto the glenoid. I then proceeded to place a 25 mm central screw. This screw had excellent purchase in bone and when it was fully seated, I was able to rotate the scapula through the screwdriver. We then proceeded to place peripheral locking screws. The inferior screw was a 5 mm x 25 mm screw. The anterior posterior and superior screws were all 15 mm x 5 mm locking screws. I then had the sales representative girls' apparel open a 36 mm glenosphere. The offset was then utilized to inferiorly offset the glenoid sphere. This was then impacted on the dried Mar taper of the base plate. I then placed a standard base plate, standard trial onto the proximal humerus. The shoulder was then reduced. It was a relatively difficult reduction. It was very stable through a full range of motion. There was no impingement noted with internal rotation. Traction was used then utilized to redislocate the shoulder very carefully. The shoulder was then thoroughly irrigated with sterile saline with antibiotic added. I then had the sales representative girls' apparel open a Biomet size 12 mini stem, a standard polyethylene and the standard base plate. The poly was then impacted onto the base plate on the back table. A size 12 stem was then impacted into the proximal humerus in approximately 30 degrees of retrotorsion. I did use some bone graft from the humeral head osteotomy to impact around the stem. I then impacted the standard base plate polyethylene onto the dried Mar taper on the actual stem. The shoulder was then reduced. Again it was a fairly difficult reduction. The tension on the conjoined tendon was appropriate. There was not any undue tension on the conjoined tendon. The shoulder was taken through a full range of motion without any impingement noted. It was very stable. Again the shoulder was thoroughly irrigated with sterile saline solution with antibiotic added via pulse lavage. The I then felt for the axillary nerve which was readily palpable and uninjured. I then placed a drain deep to the deltoid. This was brought out superiorly away from the incision. I then placed approximately 500 mg of vancomycin powder deep in the deltopectoral interval. The deltopectoral interval was then closed provisionally with interrupted 0-Vicryl sutures. Again the wound was thoroughly irrigated. The remaining 500 mg of vancomycin powder was then placed subcutaneously. The subcutaneous tissue closed with 2-0 Vicryl interrupted suture and the skin was closed with a running 3-0 Quill suture. Dermabond was applied to the incision. Sterile compressive dressing was then applied. The patient's right upper extremity was placed into a standard sling. All sponge and needle counts were deemed correct prior to closure. The patient tolerated the procedure without apparent complication. He was transferred to recovery room in stable condition. LAURA / ISAIAHN: [id number] /
[2021-03-20] MEDS: LACTATED RINGERS 1,000 ML IV SCH ×2 (05:43→05:44)
--- NOTE | 2021-03-20 07:34 | P.CONS ---
History of Present Illness - History of Present Illness This is a pleasant 65 years old male with past medical history of hyperlipide ginani, melanoma and colon cancer about 3-4 years ago,. Presents because of recurrent dislocations of the right shoulder, patient states it happened about 5 times since last December to February the last time it was with simple movement trying to open the window of his car door. Patient underwent right reverse total shoulder arthroplasty. Patient seen at bedside, fully awake and oriented, looks comfortable nontender stress and pain control. Denies any specific symptoms, no chest pain or dyspnea. No abdominal pain. No diarrhea or dysuria. No fever. Hemodynamically stable. No recent labs in the system Coronavirus not detected. Patient is a smoker about half pack per day, patient is counseled to quit he declines also declines nicotine patch stated she has tried before He denies alcohol quit many years ago. No illicit drugs Review of Systems CONSTITUTIONAL: No fever, no malaise, no fatigue. HEENT: No recent visual problems or hearing problems. Denied any sore throat. CARDIOVASCULAR: No orthopnea, PND, no palpitations, no syncope. PULMONARY: No shortness of breath, no cough, no hemoptysis. GASTROINTESTINAL: No diarrhea, no nausea, no vomiting, no abdominal pain. Normoactive bowel sounds. NEUROLOGICAL: No headaches, no weakness, no numbness. HEMATOLOGICAL: Denies any bleeding or petechiae. GENITOURINARY: Denies any burning micturition, frequency, or urgency. MUSCULOSKELETAL/RHEUMATOLOGICAL: Denies any joint pain, swelling, or any muscle pain. ENDOCRINE: Denies any polyuria or polydipsia. Past Medical History Past Medical History: Cancer, Hyperlipidemia, Osteoarthritis (OA) Additional Past Medical History / Comment(s): Hx "MELANOMA AND COLON CANCER approximately 3-4 years ago." Hx right shoulder torn tendon. Right shoulder dislocated multiple times. History of Any Multi-Drug Resistant Organisms: None Reported Past Surgical History: Joint Replacement, Orthopedic Surgery Additional Past Surgical History / Comment(s): BILATERAL HIP REPLACEMENTS, colonoscopy with POLYPECTOMY FOR CANCER, RIGHT SHOULDER SURGERY, HEMORRHOIDECTOMY, MELANOMA REMOVED FROM LEFT HAND, neck surgery - 3 discs replaced, right hand surgery. Past Anesthesia/Blood Transfusion Reactions: No Reported Reaction Additional Past Anesthesia/Blood Transfusion Reaction / Comm: Pt adopted, family hx unknown. Past Psychological History: No Psychological Hx Reported Smoking Status: Current every day smoker Past Alcohol Use History: None Reported Additional Past Alcohol Use History / Comment(s): Has been smoking since 1974, down to 1/4-1/2 ppd. No alcohol in 25 yrs. Past Drug Use History: None Reported - Past Family History Father History Unknown: Yes Family Medical History: Unable to Obtain Additional Family Medical History / Comment(s): Pt adopted, family hx unknown. Medications and Allergies Home Medications Medication Instructions Recorded Confirmed Type Zolpidem [Ambien] 10 mg PO HS 11/26/13 03/19/21 History Ibuprofen [Motrin] 800 mg PO Q6H PRN 12/03/15 03/19/21 History HYDROcodone/APAP 10-325MG [[place] 1 tab PO QID PRN 03/11/21 03/19/21 History 10-325] Allergies Allergy/AdvReac Type Severity Reaction Status Date / Time No Known Allergies Allergy Verified 03/19/21 09:14 Physical Exam Vitals: Vital Signs Temp Pulse Pulse Resp BP Pulse Ox 03/20/21 01:04 98.1 F 83 15 105/66 97 03/19/21 19:37 98.0 F 85 18 108/76 94 L 03/19/21 15:55 97.6 F 86 16 131/87 98 03/19/21 15:01 71 18 127/81 94 L 03/19/21 14:31 88 18 117/75 94 L 03/19/21 14:15 75 16 126/73 93 L 03/19/21 14:00 73 16 136/81 95 03/19/21 13:45 82 16 136/87 95 03/19/21 13:31 86 18 125/83 92 L 03/19/21 13:16 74 18 135/79 99 03/19/21 13:01 90 18 131/73 99 03/19/21 12:50 97.9 F 84 20 130/77 98 03/19/21 10:16 77 16 140/80 96 03/19/21 09:19 98.4 F 90 18 155/72 96 Intake and Output 03/19/21 03/20/21 03/20/21 22:59 06:59 14:59 Intake Total 1058 Output Total 30 Balance 1058 -30 Intake: IV 600 Oral 458 Output: Drainage 30 Right Shoulder 30 Other: # Voids 1 Weight 78.4 kg GENERAL: The patient is alert and oriented x3, not in any acute distress. Well developed, well nourished. HEENT: Pupils are round and equally reacting to light. EOMI. No scleral icterus. No conjunctival pallor. Normocephalic, atraumatic. No pharyngeal erythema. No thyromegaly. CARDIOVASCULAR: S1 and S2 present. No murmurs, rubs, or gallops. PULMONARY: Chest is clear to auscultation, no wheezing or crackles. ABDOMEN: Soft, nontender, nondistended, normoactive bowel sounds. No palpable organomegaly. -MUSCULOSKELETAL: No joint swelling or deformity. Right shoulder wound with a dressing in place, right shoulder sling. Rest of exam is deferred to surgery team EXTREMITIES: No cyanosis, clubbing, or pedal edema. NEUROLOGICAL: Gross neurological examination did not reveal any focal deficits. SKIN: No rashes. No petechiae Assessment and Plan Assessment: Recurrent right shoulder dislocation secondary to advanced rotator cuff arthropathy status post right reverse total shoulder arthroplasty. Nicotine dependence, patient is counseled Hyperlipidemia History of colon cancer and melanoma Plan: This is a pleasant 65 years old male presents with right shoulder surgery for his recurrent dislocation. Continue with pain management. Continue with laxative Gentle hydration Labs and medication were reviewed.. Continue same treatment. Continue with symptomatic treatment. Resume home medication. Monitor lytes and vitals. DVT and GI prophylaxis. Further recommendations depends on the clinical course of the patient Thank you for consulting us
[2021-03-20 09:14] LABS: Basophils # (A) 0.03 X 10*3/uL (0.00-0.10); Basophils % (A) 0.3 %; Eosinophils # (A) 0.08 X 10*3/uL (0.04-0.35); Eosinophils % (A) 0.7 %; HGB 11.6 g/dL (13.0-17.0); Lymphocytes # (A) 2.09 X 10*3/uL (0.90-5.00); Lymphocytes % (A) 18.2 %; MCH 30.4 pg (27.0-32.0); MCHC 32.2 g/dL (32.0-37.0); MCV 94.5 fL (80.0-97.0); Mean Platelet Volume 9.8 fL (9.5-12.2); Monocytes % (A) 7.8 %; Neutrophils # (A) 8.32 X 10*3/uL (1.80-7.70); Neutrophils % (A) 72.6 %; Platelet Count 327 X 10*3/uL (140-440); RBC 3.81 X 10*6/uL (4.40-5.60); RDW 13.7 % (11.5-14.5); WBC 11.47 X 10*3/uL (4.50-10.00)
[2021-03-20 09:22] VITALS: BP 137/78; PULSE 104; RESP 17; TEMP 98.3
--- NOTE | 2021-03-20 09:31 | P.DS ---
Providers Expected date of discharge: 03/20/21 Attending physician: Floyd Kelly Consults: 03/19/21 10:31 Consult Physician Routine Consulting Provider: Jareth Jones Consult Reason/Comments: post op medicl management Do you want consulting provider notified?: Yes Primary care physician: Duy Hanson - Discharge Diagnosis(es) (1) Osteoarthritis of right shoulder Patient was admitted to the OR on 03/19/2021 to undergo a right total shoulder arthroplasty. He had failed conservative measures as an outpatient and desired to proceed with elective surgery after given informed consent. He underwent the above procedure which he tolerated well without complication. Postoperative hospital course has remained without complication. On day of discharge he is afebrile, vital signs stable, labs within acceptable ranges, tolerating by mouth meds and diet, voiding without difficulty, positive flatus, denies abdominal pain or calf pain, pain is controlled on oral pain medication and has no new com plaints. Wound is benign, neurovascular status is intact, calves are soft and nontender, abdomen soft and nontender. Review of systems is negative for numbness, tingling, fever, chills, chest pain, shortness of breath, nausea, vomiting, dizziness, headaches, slurred speech or other. Current Visit: Yes Status: Acute Priority: Medium Procedures: Right reverse TSA Patient Condition at Discharge: Good Plan - Discharge Summary Discharge Rx Participant: Yes New Discharge Prescriptions: New Docusate Sodium [Dok] 100 mg PO BID #60 capsule oxyCODONE HCL/ACETAMINOPHEN [Percocet 7.5-325 mg] 1 tab PO Q4HR PRN 7 Days #42 tab PRN Reason: Pain Doxycycline Hyclate 100 mg PO BID #10 tab No Action Zolpidem [Ambien] 10 mg PO HS Ibuprofen [Motrin] 800 mg PO Q6H PRN PRN Reason: Pain HYDROcodone/APAP 10-325MG [[place] 10-325] 1 tab PO QID PRN PRN Reason: Pain Discharge Medication List Zolpidem [Ambien] 10 mg PO HS 11/26/13 [History] Ibuprofen [Motrin] 800 mg PO Q6H PRN 12/03/15 [History] HYDROcodone/APAP 10-325MG [[place] 10-325] 1 tab PO QID PRN 03/11/21 [History] Docusate Sodium [Dok] 100 mg PO BID #60 capsule 03/20/21 [Rx] Doxycycline Hyclate 100 mg PO BID #10 tab 03/20/21 [Rx] oxyCODONE HCL/ACETAMINOPHEN [Percocet 7.5-325 mg] 1 tab PO Q4HR PRN 7 Days #42 tab 03/20/21 [Rx] Follow up Appointment(s)/Referral(s): Floyd Kelly MD [STAFF PHYSICIAN] - 10 Days Activity/Diet/Wound Care/Special Instructions: Non Weight Bearing Maintain sling May shower after 3 days if no bleeding Keep wound clean and dry Take meds as directed F/U with Dr. Kelly in office Discharge Disposition: HOME SELF-CARE
== END 2021-03-20 12:20 | disposition home or self-care (01) ==
LOC: OR 08:50 → 4SSUR 15:53 → OR 03-20 12:20
PROVIDERS: ATTEND Orthopaedic Surgery Sports Medicine
DX: M19.011 Primary osteoarthritis, right shoulder (principal); M25.711 Osteophyte, right shoulder; E78.5 Hyperlipidemia, unspecified; F17.210 Nicotine dependence, cigarettes, uncomplicated; Z85.820 Personal history of malignant melanoma of skin; K21.9 Gastro-esophageal reflux disease without esophagitis; Z97.3 Presence of spectacles and contact lenses; Z98.890 Other specified postprocedural states; Z85.038 Personal history of other malignant neoplasm of large intestine; Z79.1 Long term (current) use of non-steroidal anti-inflammatories (NSAID); Z79.891 Long term (current) use of opiate analgesic; Z79.899 Other long term (current) drug therapy
CPT/HCPCS: 64415; 76942; 88305; 85025; 88311; 87635; 73020; 23472; C1776; J2250; J3370; J1100; J0690 ×2; J2405; J3010; J2795; J2370; J0330; J2704; J1170

== ENCOUNTER 2021-05-02 10:47 | Emergency (ER) | payer MEDICARE ==
--- NOTE | 2021-05-02 11:21 | ED ---
General Adult HPI - General Chief complaint: GI Bleed Stated complaint: blood in stool Time Seen by Provider: 05/02/21 10:56 Source: patient Mode of arrival: ambulatory Limitations: no limitations - History of Present Illness Initial comments: Dictation was produced using [employer] dictation software. please excuse any grammatical, word or spelling errors. Chief Complaint: 65-year-old male presents to emergency Department for GI bleed 3 days History of Present Illness: 65-year-old male who states that he has had bright red blood per rectum for the last 3 days. He denies any abdominal pain. Denies any rectal pain. Patient has any history of GI bleed. Patient allegedly has history of melanoma and colon cancer. Patient does not take anticoagulation medications. The ROS documented in this emergency department record has been reviewed and confirmed by me. Those systems with pertinent positive or negative responses have been documented in the HPI. All other systems are other negative and/or noncontributory. PHYSICAL EXAM: General Impression: Alert and oriented x3, not in acute distress HEENT: Normocephalic atraumatic, extra-ocular movements intact, pupils equal and reactive to light bilaterally, mucous membranes moist. Cardiovascular: Heart regular rate and rhythm Chest: Able to complete full sentences, no retractions, no tachypnea Abdomen: abdomen soft, non-tender, non-distended, no organomegaly Musculoskeletal: Pulses present and equal in all extremities, no peripheral edema Motor: no focal deficits noted Neurological: CN II-XII grossly intact, no focal motor or sensory deficits noted Skin: Intact with no visualized rashes Psych: Normal affect and mood Rectal exam: there is residual bright red blood per rectum no palpable mass, no tenderness in the rectal vault and intravenous ED course: 65-year-old male presents to the emergency department for 3 days of bright red blood per rectum. Vital signs upon arrival shows heart rate of 115, worse vital signs within acceptable limits. Laboratory evaluation obtained. CBC, coag panel, both panel is unremarkable. Hemoglobin is 11.9. Patient's potassium 3.2. Told to increase his potassium intake in his diet. Stool occult blood is positive. Patient was observed in the emergency department for 2 hours. Reevaluated at 12:50 PM found to be stable medical condition. He is given 40 mg Protonix. Patient is agreeable with discharge isn't uncommon with Dr. Goldstein who performs his colonoscopies. Patient's agreeable for discharge. He understands that he should return to emergency department if he has any worsening symptoms especially profuse and worsening GI bleed. - Related Data Home Medications Medication Instructions Recorded Confirmed Zolpidem [Ambien] 10 mg PO HS 11/26/13 03/19/21 Ibuprofen [Motrin] 800 mg PO Q6H PRN 12/03/15 03/19/21 HYDROcodone/APAP 10-325MG [[place] 1 tab PO QID PRN 03/11/21 03/19/21 10-325] Previous Rx's Medication Instructions Recorded Docusate Sodium [Dok] 100 mg PO BID #60 capsule 03/20/21 Doxycycline Hyclate 100 mg PO BID #10 tab 03/20/21 oxyCODONE HCL/ACETAMINOPHEN 1 tab PO Q4HR PRN 7 Days #42 tab 03/20/21 [Percocet 7.5-325 mg] Pantoprazole [Protonix] 40 mg PO DAILY #20 tab 05/02/21 Allergies Allergy/AdvReac Type Severity Reaction Status Date / Time No Known Allergies Allergy Verified 05/02/21 10:52 Review of Systems ROS Statement: Those systems with pertinent positive or pertinent negative responses have been documented in the HPI. ROS Other: All systems not noted in ROS Statement are negative. Past Medical History Past Medical History: Cancer, Hyperlipidemia, Osteoarthritis (OA) Additional Past Medical History / Comment(s): "MELANOMA AND COLON CANCER-biopsy treatmentapproximately 3-4 years ago" History of Any Multi-Drug Resistant Organisms: None Reported Past Surgical History: Joint Replacement, Orthopedic Surgery Additional Past Surgical History / Comment(s): BILATERAL HIP REPLACEMENT , colonoscopy-POLYPECTOMY FOR CANCER" RIGHT SHOULDER,HEMORRHOIDECTOMY. MELANOMA LEFT HAND. Past Anesthesia/Blood Transfusion Reactions: No Reported Reaction Past Psychological History: No Psychological Hx Reported Smoking Status: Current every day smoker Past Alcohol Use History: None Reported Past Drug Use History: None Reported General Exam Limitations: no limitations Course Vital Signs 05/02/21 10:50 Temperature 98 F Pulse Rate 115 H Respiratory 20 Rate Blood Pressure 120/66 O2 Sat by Pulse 99 Oximetry Medical Decision Making - Lab Data Result diagrams: 05/02/21 11:36 05/02/21 11:36 Lab Results 05/02/21 05/02/21 05/02/21 Range/Units 11:36 11:36 11:36 WBC 4.9 (3.8-10.6) k/uL RBC 3.76 L (4.30-5.90) m/uL Hgb 11.9 L (13.0-17.5) gm/dL Hct 35.4 L (39.0-53.0) % MCV 94.1 (80.0-100.0) fL MCH 31.6 (25.0-35.0) pg MCHC 33.5 (31.0-37.0) g/dL RDW 15.3 (11.5-15.5) % Plt Count 283 (150-450) k/uL MPV 7.5 Neutrophils % 62 % Lymphocytes % 28 % Monocytes % 5 % Eosinophils % 3 % Basophils % 0 % Neutrophils # 3.1 (1.3-7.7) k/uL Lymphocytes # 1.4 (1.0-4.8) k/uL Monocytes # 0.3 (0-1.0) k/uL Eosinophils # 0.1 (0-0.7) k/uL Basophils # 0.0 (0-0.2) k/uL PT 10.5 (9.0-12.0) sec INR 1.0 (<1.2) APTT 25.8 (22.0-30.0) sec Sodium (137-145) mmol/L Potassium (3.5-5.1) mmol/L Chloride (98-107) mmol/L Carbon Dioxide (22-30) mmol/L Anion Gap mmol/L BUN (9-20) mg/dL Creatinine (0.66-1.25) mg/dL Est GFR (CKD-EPI)AfAm (>60 ml/min/1.73 sqM) Est GFR (CKD-EPI)NonAf (>60 ml/min/1.73 sqM) Glucose (74-99) mg/dL Calcium (8.4-10.2) mg/dL Stool Occult Blood Positive (Negative) 05/02/21 Range/Units 11:36 WBC (3.8-10.6) k/uL RBC (4.30-5.90) m/uL Hgb (13.0-17.5) gm/dL Hct (39.0-53.0) % MCV (80.0-100.0) fL MCH (25.0-35.0) pg MCHC (31.0-37.0) g/dL RDW (11.5-15.5) % Plt Count (150-450) k/uL MPV Neutrophils % % Lymphocytes % % Monocytes % % Eosinophils % % Basophils % % Neutrophils # (1.3-7.7) k/uL Lymphocytes # (1.0-4.8) k/uL Monocytes # (0-1.0) k/uL Eosinophils # (0-0.7) k/uL Basophils # (0-0.2) k/uL PT (9.0-12.0) sec INR (<1.2) APTT (22.0-30.0) sec Sodium 137 (137-145) mmol/L Potassium 3.2 L (3.5-5.1) mmol/L Chloride 110 H (98-107) mmol/L Carbon Dioxide 19 L (22-30) mmol/L Anion Gap 8 mmol/L BUN 18 (9-20) mg/dL Creatinine 0.90 (0.66-1.25) mg/dL Est GFR (CKD-EPI)AfAm >90 (>60 ml/min/1.73 sqM) Est GFR (CKD-EPI)NonAf 89 (>60 ml/min/1.73 sqM) Glucose 104 H (74-99) mg/dL Calcium 7.9 L (8.4-10.2) mg/dL Stool Occult Blood (Negative) Disposition Clinical Impression: GI bleed Disposition: HOME SELF-CARE Condition: Fair Instructions (If sedation given, give patient instructions): Gastrointestinal Bleeding (ED) Prescriptions: Pantoprazole [Protonix] 40 mg PO DAILY #20 tab Is patient prescribed a controlled substance at d/c from ED?: No Referrals: Yana Willis MD [STAFF PHYSICIAN] - 1-2 days
[2021-05-02] MEDS: PANTOPRAZOLE 40 MG/10 ML VIAL IVP STA (11:38)
[2021-05-02 11:51] LABS: Basophils % (A) 0 %; Eosinophils # (A) 0.1 k/uL (0-0.7); Eosinophils % (A) 3 %; HCT 35.4 % (39.0-53.0); HGB 11.9 gm/dL (13.0-17.5); Lymphocytes # (A) 1.4 k/uL (1.0-4.8); Lymphocytes % (A) 28 %; MCH 31.6 pg (25.0-35.0); MCHC 33.5 g/dL (31.0-37.0); MCV 94.1 fL (80.0-100.0); Mean Platelet Volume 7.5; Monocytes # (A) 0.3 k/uL (0-1.0); Monocytes % (A) 5 %; Neutrophils # (A) 3.1 k/uL (1.3-7.7); Neutrophils % (A) 62 %; Platelet Count 283 k/uL (150-450); RBC 3.76 m/uL (4.30-5.90); RDW 15.3 % (11.5-15.5); WBC 4.9 k/uL (3.8-10.6)
[2021-05-02 12:00] LABS: Partial Thromboplastin Time 25.8 sec (22.0-30.0); Prothrombin Time 10.5 sec (9.0-12.0)
[2021-05-02 12:03] LABS: African American GFR (CKD) >90 (>60 ml/min/1.73 sqM); Anion Gap 8 mmol/L; Blood Urea Nitrogen 18 mg/dL (9-20); Calcium 7.9 mg/dL (8.4-10.2); Carbon Dioxide 19 mmol/L (22-30); Chloride 110 mmol/L (98-107); Glucose 104 mg/dL (74-99); Non-African American GFR(CKD) 89 (>60 ml/min/1.73 sqM); Potassium 3.2 mmol/L (3.5-5.1); Sodium 137 mmol/L (137-145)
[2021-05-02 13:38] VITALS: BP 90/65; PULSE 100; RESP 18; TEMP 98.3
== END 2021-05-02 12:55 | disposition home or self-care (01) ==
LOC: EC 10:47
DX: K92.2 Gastrointestinal hemorrhage, unspecified (principal); E78.5 Hyperlipidemia, unspecified; M19.90 Unspecified osteoarthritis, unspecified site; F17.200 Nicotine dependence, unspecified, uncomplicated
CPT/HCPCS: 36415; 86900; 86901; 80048; 85025; 85610; 85730; 86850; 82272; 99283; 96374; C9113

== ENCOUNTER 2022-07-27 16:45 | Emergency (ER) | payer MEDICARE ==
[2022-07-27 17:00] VITALS: RESP 18; TEMP 98.8
[2022-07-27] MEDS ORDERED: SODIUM CHLORIDE 0.9% 1,000 ML IV STA (18:08)
[2022-07-27] MEDS ORDERED: ONDANSETRON 4 MG/2 ML VIAL IVP STA (18:53)
[2022-07-27] MEDS ORDERED: MAG HYDROX/AL HYDROX/SIMETH 30 ML, HYOSCYAMINE ELIXIR 10 ML, LIDOCAINE 2% GLYDO JELLY 1... PO STA ×3 (18:53)
[2022-07-27 19:40] LABS: Basophils % (A) 0 %; Eosinophils # (A) 0.1 k/uL (0-0.7); Eosinophils % (A) 2 %; HCT 43.3 % (39.0-53.0); HGB 14.6 gm/dL (13.0-17.5); Lymphocytes # (A) 1.9 k/uL (1.0-4.8); Lymphocytes % (A) 23 %; MCH 32.5 pg (25.0-35.0); MCHC 33.7 g/dL (31.0-37.0); MCV 96.6 fL (80.0-100.0); Mean Platelet Volume 7.4; Monocytes # (A) 0.3 k/uL (0-1.0); Monocytes % (A) 3 %; Neutrophils # (A) 5.6 k/uL (1.3-7.7); Neutrophils % (A) 70 %; Platelet Count 280 k/uL (150-450); RBC 4.48 m/uL (4.30-5.90); RDW 13.7 % (11.5-15.5)
[2022-07-27 19:49] LABS: ALT 12 U/L (4-49); AST 20 U/L (17-59); African American GFR (CKD) >90 (>60 ml/min/1.73 sqM); Albumin 3.5 g/dL (3.5-5.0); Alkaline Phosphatase 81 U/L (38-126); Amylase 46 U/L (30-110); Anion Gap 7 mmol/L; Blood Urea Nitrogen 12 mg/dL (9-20); Calcium 8.4 mg/dL (8.4-10.2); Carbon Dioxide 25 mmol/L (22-30); Chloride 104 mmol/L (98-107); Glucose 86 mg/dL (74-99); Lipase 27 U/L (23-300); Non-African American GFR(CKD) 87 (>60 ml/min/1.73 sqM); Potassium 4.1 mmol/L (3.5-5.1); Sodium 136 mmol/L (137-145); Total Bilirubin 0.7 mg/dL (0.2-1.3); Total Protein 5.9 g/dL (6.3-8.2)
[2022-07-27 19:52] LABS: Appearance,Urine Clear (Clear); Bilirubin,Urine Negative (Negative); Blood,Urine Negative (Negative); Color,Urine Colorless; Glucose,Urine (UA) Negative (Negative); Ketones,Urine Negative (Negative); Leukocyte Esterase,Urine Negative (Negative); Nitrite,Urine Negative (Negative); PH, Urine 6.5 (5.0-8.0); Protein,Urine Negative (Negative); Specific Gravity,Urine 1.002 (1.001-1.035); Urobilinogen,Urine <2.0 mg/dL (<2.0)
[2022-07-27 19:54] LABS: Partial Thromboplastin Time 25.4 sec (22.0-30.0); Prothrombin Time 10.2 sec (9.0-12.0)
--- NOTE | 2022-07-27 20:53 | XR ---
EXAMINATION TYPE: XR chest 2V DATE OF EXAM: 07/27/2022 COMPARISON: 11/27/2014 INDICATION: Heartburn TECHNIQUE: Frontal and lateral views of the chest are obtained. FINDINGS: The heart size is normal. The pulmonary vasculature is normal. The lungs are clear. Right shoulder prosthesis is evident. Prior anterior cervical fusion is present . IMPRESSION: 1. No acute pulmonary process.
[2022-07-27 21:42] VITALS: BP 170/96; PULSE 79
--- NOTE | 2022-07-27 21:44 | ED ---
General Adult HPI - General Chief complaint: Abdominal Pain Stated complaint: Recheck Time Seen by Provider: 07/27/22 18:09 Source: patient, RN notes reviewed, old records reviewed Mode of arrival: ambulatory Limitations: no limitations - History of Present Illness Initial comments: Patient is a 67-year-old male presents emergency Department complaining of epigastric discomfort, nausea and vomiting. Sent by PCP for evaluation. Takes Motrin 800s 3 times daily as well as [place] as daily with Tylenol. States he has had this symptoms before but has been somewhat more persistent since Tuesday. States he does get some radiation of this burning sensation from his epigastrium up towards the back of his throat. Overall at the current time is not feeling much in terms of pain but his PCP wanted him to be evaluated for cardiac etiology. No significant cardiac history. No other acute complaints at this time. Endorses mild occasional nausea but denies diarrhea. Denies any other chest pain or shortness of breath. Denies any fevers, chills, cough. Presents for further evaluation. - Related Data Home Medications Medication Instructions Recorded Confirmed Zolpidem [Ambien] 10 mg PO HS 11/26/13 03/19/21 Ibuprofen [Motrin] 800 mg PO Q6H PRN 12/03/15 03/19/21 HYDROcodone/APAP 10-325MG [[place] 1 tab PO QID PRN 03/11/21 03/19/21 10-325] Previous Rx's Medication Instructions Recorded Docusate Sodium [Dok] 100 mg PO BID #60 capsule 03/20/21 Doxycycline Hyclate 100 mg PO BID #10 tab 03/20/21 oxyCODONE HCL/ACETAMINOPHEN 1 tab PO Q4HR PRN 7 Days #42 tab 03/20/21 [Percocet 7.5-325 mg] Pantoprazole [Protonix] 40 mg PO DAILY #20 tab 05/02/21 Pantoprazole [Protonix] 40 mg PO DAILY 14 Days #14 tab 07/27/22 Allergies Allergy/AdvReac Type Severity Reaction Status Date / Time No Known Allergies Allergy Verified 07/27/22 16:58 Review of Systems ROS Statement: Those systems with pertinent positive or pertinent negative responses have been documented in the HPI. Review of Systems: CONST: Denies fever EYES: Denies blurry vision ENT: Denies nasal congestion C/V: Denies Chest pain RESP: Denies shortness of breath GI: Endorses abdominal pain : Denies dysuria SKIN: Denies rash. MSK: Denies joint pain. NEURO: Denies headache ROS Other: All systems not noted in ROS Statement are negative. Past Medical History Past Medical History: Cancer, Hyperlipidemia, Osteoarthritis (OA) Additional Past Medical History / Comment(s): "MELANOMA AND COLON CANCER-biopsy treatmentapproximately 3-4 years ago" History of Any Multi-Drug Resistant Organisms: None Reported Past Surgical History: Joint Replacement, Orthopedic Surgery Additional Past Surgical History / Comment(s): BILATERAL HIP REPLACEMENT , c olonoscopy-POLYPECTOMY FOR CANCER" RIGHT SHOULDER,HEMORRHOIDECTOMY. MELANOMA LEFT HAND. Past Anesthesia/Blood Transfusion Reactions: No Reported Reaction Past Psychological History: No Psychological Hx Reported Smoking Status: Current every day smoker Past Alcohol Use History: None Reported Past Drug Use History: None Reported General Exam - General Exam Comments Initial Comments: General: Appears in no acute distress. HEAD: Normal with no signs of head trauma. EYES: PERRLA, EOMI, conjunctiva normal, no discharge. ENT: Hearing grossly intact, normal oropharynx. RESPIRATORY: Clear breath sounds bilaterally. No wheezes, rales, or rhonchi. C/V: Regular rate and rhythm. S1 and S2 auscultated, no edema, peripheral pulses 2+ and intact throughout ABD: Abdomen soft, nondistended. Tender to palpation very minimally in the epigastric region. No guarding. No peritoneal signs. EXT: Normal range of motion, no obvious deformity SKIN: No rashes or lesions observed on exposed skin. NEURO: Alert and oriented 4. Limitations: no limitations Course Vital Signs 07/27/22 07/27/22 16:58 21:40 Temperature 98.8 F Pulse Rate 93 79 Respiratory 18 18 Rate Blood Pressure 152/96 170/96 O2 Sat by Pulse 96 98 Oximetry Medical Decision Making - Medical Decision Making Was pt. sent in by a medical professional or institution (, PA, WOODS MANAGER, urgent care, hospital, or correction...) When possible be specific @ -Sent in by PCP Dr. Hanson for evaluation and cardiac labs. Did you speak to anyone other than the patient for history (EMS, parent, family, police, friend...)? What history was obtained from this source @ -No Did you review nursing and triage notes (agree or disagree)? Why? @ -I reviewed and agree with nursing and triage notes Were old charts reviewed (outside hosp., previous admission, EMS record, old EKG, old radiological studies, urgent care reports/EKG's, correction records)? Report findings @ -No old charts were reviewed Differential Diagnosis (chest pain, altered mental status, abdominal pain women, abdominal pain men, vaginal bleeding, weakness, fever, dyspnea, syncope, headache, dizziness, GI bleed, back pain, seizure, CVA, palpatations, mental health, musculoskeletal)? @ -Differential Abdominal Pain Men: Appendicitis, cholecystitis, diverticulosis, ischemic bowel, pancreatitis, hepatitis, UTI, gastroenteritis, AAA, incarcerated hernia, bowel obstruction, constipation, inflammatory bowel, hepatitis, peptic ulcer disease, splenic infarction, perforated viscus, testicular torsion, this is not meant to be an all-inclusive list EKG interpreted by me (3pts min.). @ -As above X-rays interpreted by me (1pt min.). @ -Chest X Ray reveals no obvious acute cardio primary process. CT interpreted by me (1pt min.). @ -None done U/S interpreted by me (1pt. min.). @ -None done What testing was considered but not performed or refused? (CT, X-rays, U/S, labs)? Why? @ -None What meds were considered but not given or refused? Why? @ -None Did you discuss the management of the patient with other professionals (professionals i.e. , PA, WOODS MANAGER, lab, RT, psych nurse, administrator social welfare, practice managers, teacher, disciplinary hearing officer, rehabilitation caseworker)? Give summary @ -No Was smoking cessation discussed for >3mins.? @ -No Was critical care preformed (if so, how long)? @ -No Were there social determinants of health that impacted care today? How? (Homelessness, low income, unemployed, alcoholism, drug addiction, transportation, low edu. Level, literacy, decrease access to med. care, senior care, rehab)? @ -No Was there de-escalation of care discussed even if they declined (Discuss DNR or withdrawal of care, Hospice)? DNR status @ -No What co-morbidities impacted this encounter? (DM, HTN, Smoking, COPD, CAD, C ancer, CVA, ARF, Chemo, Hep., AIDS, mental health diagnosis, sleep apnea, morbid obesity)? @ -None Was patient admitted / discharged? Hospital course, mention meds given and route, prescriptions, significant lab abnormalities, going to OR and other pertinent info. @ -Based on the patient's presentation and physical exam, he presents with sy mptoms concerning for possible ulcer or gastritis but cannot rule out atypical ACS at this time. Presents for cardiac workup requested PCP. We will obtain cardiopulmonary labs. Chest x-ray will also be obtained. He will be symptomatically treated with IV fluids, IV Zofran, as well as a GI cocktail. He was in agreement this plan. Vital signs within acceptable limits. EKG shows no signs of acute ischemia. Imaging unremarkable. Labs unremarkable including undetectable troponin. On reevaluation, patient is asymptomatic. We discussed that he may be experiencing gastritis or ulcers. Do not appear to be severe at this time. Recommended an antacid use at home as well as tried to discontinue use of persistent [id number] analgesic medications which make his symptoms worse. He access understanding. Strict return precautions discussed. He'll be discharged home at this time. I low suspicion for ACS is patient is asymptomatic, has had symptoms for multiple days, with unremarkable EKG and undetectable troponin. Heart score is low. Discussed she may need a endoscopy. I will provide the patient with a prescription for Protonix. I instructed the patient to follow up with their PCP in the next 1-3 days. I provided contact information for follow up with GI. I explained that the patient should return to the emergency department if they experience any worsening symptoms. Strict return precautions were discussed with the patient. The patient expressed understanding of these instructions. I answered all questions that the patient had. The patient was discharged home in good condition with their prescriptions and follow up information. Undiagnosed new problem with uncertain prognosis? @ -No Drug Therapy requiring intensive monitoring for toxicity (Heparin, Nitro, Insulin, Cardizem)? @ -No Were any procedures done? @ -No Diagnosis/symptom? @ -Abdominal pain of unknown etiology, likely gastritis versus ulcer Acute, or Chronic, or Acute on Chronic? @ -Acute on chronic Uncomplicated (without systemic symptoms) or Complicated (systemic symptoms)? @ -Uncomplicated Side effects of treatment? @ -No Exacerbation, Progression, or Severe Exacerbation? @ -No Poses a threat to life or bodily function? How? (Chest pain, [place], [place], pneumonia, PE, COPD, DKA, ARF, appy, cholecystitis, CVA, Diverticulitis, Homicidal, Suicidal, threat to staff... and all critical care pts) @ -No - Lab Data Result diagrams: 07/27/22 18:47 07/27/22 18:47 Lab Results 07/27/22 07/27/22 07/27/22 Range/Units 18:47 18:47 18:47 WBC 8.0 (3.8-10.6) k/uL RBC 4.48 (4.30-5.90) m/uL Hgb 14.6 (13.0-17.5) gm/dL Hct 43.3 (39.0-53.0) % MCV 96.6 (80.0-100.0) fL MCH 32.5 (25.0-35.0) pg MCHC 33.7 (31.0-37.0) g/dL RDW 13.7 (11.5-15.5) % Plt Count 280 (150-450) k/uL MPV 7.4 Neutrophils % 70 % Lymphocytes % 23 % Monocytes % 3 % Eosinophils % 2 % Basophils % 0 % Neutrophils # 5.6 (1.3-7.7) k/uL Lymphocytes # 1.9 (1.0-4.8) k/uL Monocytes # 0.3 (0-1.0) k/uL Eosinophils # 0.1 (0-0.7) k/uL Basophils # 0.0 (0-0.2) k/uL PT 10.2 (9.0-12.0) sec INR 1.0 (<1.2) APTT 25.4 (22.0-30.0) sec Sodium (137-145) mmol/L Potassium (3.5-5.1) mmol/L Chloride (98-107) mmol/L Carbon Dioxide (22-30) mmol/L Anion Gap mmol/L BUN (9-20) mg/dL Creatinine (0.66-1.25) mg/dL Est GFR (CKD-EPI)AfAm (>60 ml/min/1.73 sqM) Est GFR (CKD-EPI)NonAf (>60 ml/min/1.73 sqM) Glucose (74-99) mg/dL Plasma Lactic Acid Rud[place] (0.7-2.0) mmol/L Calcium (8.4-10.2) mg/dL Total Bilirubin (0.2-1.3) mg/dL AST (17-59) U/L ALT (4-49) U/L Alkaline Phosphatase (38-126) U/L Troponin I (0.000-0.034) ng/mL Total Protein (6.3-8.2) g/dL Albumin (3.5-5.0) g/dL Amylase (30-110) U/L Lipase (23-300) U/L Urine Color Colorless Urine Appearance Clear (Clear) Urine pH 6.5 (5.0-8.0) Ur Specific [place] 1.002 (1.001-1.035) Urine Protein Negative (Negative) Urine Glucose (UA) Negative (Negative) Urine Ketones Negative (Negative) Urine Blood Negative (Negative) Urine Nitrite Negative (Negative) Urine Bilirubin Negative (Negative) Urine Urobilinogen <2.0 (<2.0) mg/dL Ur Leukocyte Esterase Negative (Negative) 07/27/22 07/27/22 07/27/22 Range/Units 18:47 18:47 18:47 WBC (3.8-10.6) k/uL RBC (4.30-5.90) m/uL Hgb (13.0-17.5) gm/dL Hct (39.0-53.0) % MCV (80.0-100.0) fL MCH (25.0-35.0) pg MCHC (31.0-37.0) g/dL RDW (11.5-15.5) % Plt Count (150-450) k/uL MPV Neutrophils % % Lymphocytes % % Monocytes % % Eosinophils % % Basophils % % Neutrophils # (1.3-7.7) k/uL Lymphocytes # (1.0-4.8) k/uL Monocytes # (0-1.0) k/uL Eosinophils # (0-0.7) k/uL Basophils # (0-0.2) k/uL PT (9.0-12.0) sec INR (<1.2) APTT (22.0-30.0) sec Sodium 136 L (137-145) mmol/L Potassium 4.1 (3.5-5.1) mmol/L Chloride 104 (98-107) mmol/L Carbon Dioxide 25 (22-30) mmol/L Anion Gap 7 mmol/L BUN 12 (9-20) mg/dL Creatinine 0.91 (0.66-1.25) mg/dL Est GFR (CKD-EPI)AfAm >90 (>60 ml/min/1.73 sqM) Est GFR (CKD-EPI)NonAf 87 (>60 ml/min/1.73 sqM) Glucose 86 (74-99) mg/dL Plasma Lactic Acid Rud[place] 2.0 (0.7-2.0) mmol/L Calcium 8.4 (8.4-10.2) mg/dL Total Bilirubin 0.7 (0.2-1.3) mg/dL AST 20 (17-59) U/L ALT 12 (4-49) U/L Alkaline Phosphatase 81 (38-126) U/L Troponin I <0.012 (0.000-0.034) ng/mL Total Protein 5.9 L (6.3-8.2) g/dL Albumin 3.5 (3.5-5.0) g/dL Amylase 46 (30-110) U/L Lipase 27 (23-300) U/L Urine Color Urine Appearance (Clear) Urine pH (5.0-8.0) Ur Specific [place] (1.001-1.035) Urine Protein (Negative) Urine Glucose (UA) (Negative) Urine Ketones (Negative) Urine Blood (Negative) Urine Nitrite (Negative) Urine Bilirubin (Negative) Urine Urobilinogen (<2.0) mg/dL Ur Leukocyte Esterase (Negative) - EKG Data -: EKG Interpreted by Me EKG Comments: 12-lead Electrocardiogram Interpretation Note EKG was reviewed and interpreted by myself. 12-lead ECG performed at 1917 is interpreted by me as revealing normal sinus rhythm at a rate of 74 beats per minute. [place] is leftward deviated. [place] interval is 136 ms, QRS duration is 93 ms, QTC is 412 ms.. There were no ST or T wave abnormalities to suggest myocardial ischemia or injury. R wave progression across the precordium was satisfactory. By my interpretation this EKG is non-diagnostic for acute ischemia . Disposition Clinical Impression: Gastritis Disposition: HOME SELF-CARE Condition: Good Instructions (If sedation given, give patient instructions): Gastritis (ED), GERD (Gastroesophageal Reflux Disease) (ED) Prescriptions: Pantoprazole [Protonix] 40 mg PO DAILY 14 Days #14 tab Is patient prescribed a controlled substance at d/c from ED?: No Referrals: Duy Hanson MD [Primary Care Provider] - 1-2 days Ernestina Adams MD [STAFF PHYSICIAN] - 1-2 days Time of Disposition: 21:34
== END 2022-07-27 21:45 | disposition home or self-care (01) ==
LOC: EC 16:45
DX: K29.70 Gastritis, unspecified, without bleeding (principal); F17.200 Nicotine dependence, unspecified, uncomplicated
CPT/HCPCS: 36415; 93005; 80053; 82150; 83605; 83690; 84484; 85025; 85610; 85730; 81003; 99284; 96374; 96361; 71046; J2405

== ENCOUNTER 2022-10-23 08:50 | Emergency (ER) | payer OTHER, MEDICARE ==
[2022-10-23 08:57] VITALS: RESP 16
[2022-10-23] MEDS ORDERED: KETOROLAC 15 MG/ML 1 ML VIAL IM STA (09:28)
[2022-10-23] MEDS ORDERED: HYDROmorphone 1 MG/ML 1 ML SYRINGE IM STA (09:28)
--- NOTE | 2022-10-23 09:47 | ED ---
Upper Extremity HPI - General Chief Complaint: Extremity Injury, Upper Stated Complaint: Lt arm injury Time Seen by Provider: 10/23/22 08:58 Source: patient, RN notes reviewed Mode of arrival: ambulatory Limitations: no limitations - History of Present Illness Initial Comments: This is a 67-year-old male who presents to the emergency department for left hand pain. Patient had a crushing injury from a dump truck to the left hand 2 days ago, and had surgery with Dr. Lucio at [place]. States that when he woke up this morning, he had increasing pain to the fingers and started to notice some bleeding underneath the cast, prompting him to come to the emergency department. He is taking [place], which is not effectively managing his pain. Denies any fevers, chills, sore throat, cough, dyspnea, chest pain, palpitations, abdominal pain, nausea, vomiting, diarrhea, back pain, or headaches. MD Complaint: Injury to:: left, hand - Related Data Home Medications Medication Instructions Recorded Confirmed Zolpidem [Ambien] 10 mg PO HS 11/26/13 03/19/21 Ibuprofen [Motrin] 800 mg PO Q6H PRN 12/03/15 03/19/21 HYDROcodone/APAP 10-325MG [[place] 1 tab PO QID PRN 03/11/21 03/19/21 10-325] Previous Rx's Medication Instructions Recorded Docusate Sodium [Dok] 100 mg PO BID #60 capsule 03/20/21 Doxycycline Hyclate 100 mg PO BID #10 tab 03/20/21 oxyCODONE HCL/ACETAMINOPHEN 1 tab PO Q4HR PRN 7 Days #42 tab 03/20/21 [Percocet 7.5-325 mg] Pantoprazole [Protonix] 40 mg PO DAILY #20 tab 05/02/21 Pantoprazole [Protonix] 40 mg PO DAILY 14 Days #14 tab 07/27/22 Allergies Allergy/AdvReac Type Severity Reaction Status Date / Time No Known Allergies Allergy Verified 10/23/22 08:52 Review of Systems ROS Statement: Those systems with pertinent positive or pertinent negative responses have been documented in the HPI. ROS Other: All systems not noted in ROS Statement are negative. Past Medical History Past Medical History: Cancer, Osteoarthritis (OA) Additional Past Medical History / Comment(s): "MELANOMA AND COLON CANCER-biopsy treatmentapproximately 3-4 years ago" History of Any Multi-Drug Resistant Organisms: None Reported Past Surgical History: Joint Replacement, Orthopedic Surgery Additional Past Surgical History / Comment(s): BILATERAL HIP REPLACEMENT , colonoscopy-POLYPECTOMY FOR CANCER" RIGHT SHOULDER,HEMORRHOIDECTOMY. MELANOMA LEFT HAND. left hand Past Anesthesia/Blood Transfusion Reactions: No Reported Reaction Past Psychological History: No Psychological Hx Reported Smoking Status: Current every day smoker Past Alcohol Use History: None Reported Past Drug Use History: None Reported General Exam Limitations: no limitations General appearance: alert, in no apparent distress Head exam: Present: atraumatic, normocephalic, normal inspection Respiratory exam: Present: normal lung sounds bilaterally. Absent: respiratory distress, wheezes, rales, rhonchi, stridor Cardiovascular Exam: Present: regular rate, normal rhythm, normal heart sounds. Absent: systolic murmur, diastolic murmur, rubs, gallop, clicks Extremities exam: Present: other (Diffuse swelling to the left hand with scattered lacerations that have been sutured. There are also skin tears with evidence of recent active bleeding. 2+ radial pulses. Capillary refill less than 1 second.) Neurological exam: Present: alert, oriented X3, CN II-XII intact Psychiatric exam: Present: normal affect, normal mood Course Vital Signs 10/23/22 10/23/22 08:52 10:47 Temperature 97.9 F 98.1 F Pulse Rate 89 75 Respiratory 16 16 Rate Blood Pressure 159/92 133/79 O2 Sat by Pulse 99 98 Oximetry Procedures - Orthopedic Splinting/Casting Injury #1 Side: left Upper Extremity Injury Location: wrist Upper Extremity Immobilizer: volar splint Medical Decision Making - Medical Decision Making This is a 67-year-old male who presents to the emergency department for left hand pain. Was pt. sent in by a medical professional or institution? @ -No Did you speak to anyone other than the patient for history? @ -No Did you review nursing and triage notes? @ -Yes, and I agree, it is accurate with regards to the patient's symptoms. Were old charts reviewed? @ -No Differential Diagnosis? @ -Differential Postop Hand Pain: Fracture, postoperative pain, postoperative complications, compartment syndrome, this is not meant to be an all-inclusive list. EKG interpreted by me (3pts min.)? @ -Not obtained X-rays interpreted by me (1pt min.)? @ -X-ray of the left hand obtained. My interpretation identifies intact hardware to digits 3, 4, and 5. CT interpreted by me (1pt min.)? @ -Not obtained U/S interpreted by me (1pt. min.)? @ -Not obtained What testing was considered but not performed? (CT, X-rays, U/S, labs)? Why? @ -None What meds were considered but not given? Why? @ -None Did you discuss the management of the patient with other professionals? @ -No Did you reconcile home meds? @ -No Was smoking cessation discussed for >3mins.? @ -I discussed smoking cessation for greater than 3 minutes. The risk of smoking were discussed with the patient including but not limited to risks of cancer, stroke, coronary artery disease and COPD. Also discussed with patient were multiple methods of quitting smoking. Lastly we discussed the financial cost of smoking. Was critical care preformed (if so, how long)? @ -No Were there social determinants of health that impacted care today? How? (Homelessness, low income, unemployed, alcoholism, drug addiction, transportation, low edu. Level, literacy, decrease access to med. care, fci, rehab)? @ -No Was there de-escalation of care discussed even if they declined? (Discuss DNR or withdrawal of care, Hospice)? @ -No What co-morbidities impacted this encounter? (DM, HTN, Smoking, COPD, CAD, Canc er, CVA, Hep., AIDS, mental health diagnosis, sleep apnea, morbid obesity)? @ -Smoking Was patient admitted / discharged? @ -Discharged. X-rays obtained revealing postsurgical changes and swelling, which is to be expected. I removed his splint, and the patient felt significantly better. The splint that was applied was likely too tight, and when the swelling started to increase, there was no room for it to go. The sutures were still in place and while there was no active bleeding, there was evidence of recent active bleeding. There was also no evidence of infection. His wounds were bandaged, a volar splint was reapplied, and his arm was rewrapped in a looser fashion, which the patient felt was much more comfortable. He was discharged home in stable condition and will continue to take his pain medication as prescribed and follow up with orthopedics as scheduled. Undiagnosed new problem with uncertain prognosis? @ -None Drug Therapy requiring intensive monitoring for toxicity (Heparin, Nitro, Insulin, Cardizem)? @ -None Were any procedures done? @ -Volar splint application Diagnosis/symptom? @ -Left hand pain Acute, or Chronic, or Acute on Chronic? @ -Acute Uncomplicated (without systemic symptoms) or Complicated (systemic symptoms)? @ -Uncomplicated Side effects of treatment? @ -None Exacerbation, Progression, or Severe Exacerbation] @ -Not applicable Poses a threat to life or bodily function? @ -No Return precautions reviewed in depth, the patient is instructed to return to the emergency department with any new, worsening, or concerning symptoms. Patient verbalized understanding. This case was discussed in detail with the attending ED physician, Dr. St. Presentation, findings, and treatment plan discussed in detail as well. - Radiology Data Radiology results: report reviewed, image reviewed Disposition Clinical Impression: Injury of left hand, Nicotine dependence Disposition: HOME SELF-CARE Instructions (If sedation given, give patient instructions): Splint Care (ED) Additional Instructions: Return to the emergency department with any new, worsening, or concerning symptoms. Continue to take your pain medication as prescribed. Follow up with your primary care provider in 1-2 days. Is patient prescribed a controlled substance at d/c from ED?: No Referrals: Duy Hanson MD [Primary Care Provider] - 1-2 days
--- NOTE | 2022-10-23 09:52 | XR ---
EXAMINATION TYPE: XR hand complete LT DATE OF EXAM: 10/23/2022 9:47 AM INDICATION: Patient age:Male; 67 years old; Reason for study: Postop pain; PHH. COMPARISON: None TECHNIQUE: Frontal, lateral and oblique views of the left hand were obtained. FINDINGS: Overlying cast material limits evaluation of fine osseous detail. Fixation plate involving involving the third, fourth, fifth metacarpals fractures demonstrated. Hardware appears intact. Fract ure lines are visible. No dislocation. Soft tissue gas and edema identified prominent within the dors al hand. IMPRESSION: Post surgical changes changes from fixation of fractured third, fourth, and fifth metacarpals. Soft t issue edema most prominent over the dorsal hand with soft tissue gas identified likely related to rec ent surgery however infectious process is not excluded.
[2022-10-23 10:49] VITALS: BP 133/79; PULSE 75; TEMP 98.1
== END 2022-10-23 10:52 | disposition home or self-care (01) ==
LOC: EC 08:50
DX: S69.92XA Unspecified injury of left wrist, hand and finger(s), initial encounter (principal); F17.200 Nicotine dependence, unspecified, uncomplicated; M19.90 Unspecified osteoarthritis, unspecified site; Z79.1 Long term (current) use of non-steroidal anti-inflammatories (NSAID); X58.XXXA Exposure to other specified factors, initial encounter
CPT/HCPCS: 73130; 99283; 96372 ×2; 29125; J1170; J1885

== ENCOUNTER 2022-10-23 23:16 | Emergency (ER) | payer MEDICARE ==
[2022-10-23 23:27] VITALS: TEMP 97.8
[2022-10-24] MEDS ORDERED: GELATIN SPONGE,ABSORB (LARGE) 1 EACH SPONGE TOPICAL STA (00:14)
--- NOTE | 2022-10-24 00:42 | ED ---
Recheck HPI - General Chief Complaint: Recheck/Abnormal Lab/Rx Stated Complaint: Wound on hand bleeding Time Seen by Provider: 10/24/22 00:03 Source: patient Mode of arrival: ambulatory - History of Present Illness Initial Comments: 67-year-old male presenting with chief complaint of bleeding from recent surgery site to the left hand. Patient had surgery on his hand at [place] on , the hand was involved in a crush injury with a dump truck. Patient was seen here this morning stating that blood was seen saturating the dressing. On inspection this morning bleeding was well-controlled wound was redressed and the patient was resplinted. He states that he had increase in bleeding and pain and was beginning to saturate the dressing again. He has a follow-up with his surgeon this Tuesday. - Related Data Home Medications Medication Instructions Recorded Confirmed Zolpidem [Ambien] 10 mg PO HS 11/26/13 03/19/21 Ibuprofen [Motrin] 800 mg PO Q6H PRN 12/03/15 03/19/21 HYDROcodone/APAP 10-325MG [[place] 1 tab PO QID PRN 03/11/21 03/19/21 10-325] Previous Rx's Medication Instructions Recorded Docusate Sodium [Dok] 100 mg PO BID #60 capsule 03/20/21 Doxycycline Hyclate 100 mg PO BID #10 tab 03/20/21 oxyCODONE HCL/ACETAMINOPHEN 1 tab PO Q4HR PRN 7 Days #42 tab 03/20/21 [Percocet 7.5-325 mg] Pantoprazole [Protonix] 40 mg PO DAILY #20 tab 05/02/21 Pantoprazole [Protonix] 40 mg PO DAILY 14 Days #14 tab 07/27/22 Allergies Allergy/AdvReac Type Severity Reaction Status Date / Time No Known Allergies Allergy Verified 10/23/22 23:27 Review of Systems ROS Statement: Those systems with pertinent positive or pertinent negative responses have been documented in the HPI. ROS Other: All systems not noted in ROS Statement are negative. Past Medical History Past Medical History: Cancer, Osteoarthritis (OA) Additional Past Medical History / Comment(s): "MELANOMA AND COLON CANCER-biopsy treatmentapproximately 3-4 years ago" History of Any Multi-Drug Resistant Organisms: None Reported Past Surgical History: Joint Replacement, Orthopedic Surgery Additional Past Surgical History / Comment(s): BILATERAL HIP REPLACEMENT , colonoscopy-POLYPECTOMY FOR CANCER" RIGHT SHOULDER,HEMORRHOIDECTOMY. MELANOMA LEFT HAND. left hand Past Anesthesia/Blood Transfusion Reactions: No Reported Reaction Past Psychological History: No Psychological Hx Reported Smoking Status: Current every day smoker Past Alcohol Use History: None Reported Past Drug Use History: None Reported General Exam Limitations: no limitations General appearance: alert, in no apparent distress Head exam: Present: atraumatic, normocephalic, normal inspection Eye exam: Present: normal appearance, EOMI Neck exam: Present: normal inspection, full ROM Respiratory exam: Absent: respiratory distress Left Hand Wrist exam: Present: tenderness, swelling (Consistent with postop). Absent: full ROM Neurological exam: Present: alert, oriented X3, CN II-XII intact Psychiatric exam: Present: normal affect, normal mood Skin exam: Present: abrasion (Patient has abrasions evident from recent injury, there appears to be skin avulsion from the injury on the dorsal surface of the hand) Course Vital Signs 10/23/22 10/24/22 23:23 00:51 Temperature 97.8 F Pulse Rate 88 81 Respiratory 18 19 Rate Blood Pressure 127/77 115/70 O2 Sat by Pulse 99 Oximetry Procedures - Orthopedic Splinting/Casting Injury #1 Side: left Upper Extremity Injury Location: hand Upper Extremity Immobilizer: volar splint Medical Decision Making - Medical Decision Making Was pt. sent in by a medical professional or institution (RICKY Burch, HYDROELECTRIC STATION OPERATOR CHIEF, urgent care, hospital, or custodial...) When possible be specific @ -[No] Did you speak to anyone other than the patient for history (EMS, parent, family, police, friend...)? What history was obtained from this source @ -[No] Did you review nursing and triage notes (agree or disagree)? Why? @ -[I reviewed and agree with nursing and triage notes] Were old charts reviewed (outside hosp., previous admission, EMS record, old EKG, old radiological studies, urgent care reports/EKG's, custodial records)? Report findings @ -[No old charts were reviewed] Differential Diagnosis (chest pain, altered mental status, abdominal pain women, abdominal pain men, vaginal bleeding, weakness, fever, dyspnea, syncope, headache, dizziness, GI bleed, back pain, seizure, CVA, palpatations, mental health, musculoskeletal)? @ -[not applicable] EKG interpreted by me (3pts min.). @ -[As above] X-rays interpreted by me (1pt min.). @ -[None done] CT interpreted by me (1pt min.). @ -[None done] U/S interpreted by me (1pt. min.). @ -[None done] What testing was considered but not performed or refused? (CT, X-rays, U/S, labs)? Why? @ -[None] What meds were considered but not given or refused? Why? @ -[None] Did you discuss the management of the patient with other professionals (professionals i.e. DrJaye, PA, HYDROELECTRIC STATION OPERATOR CHIEF, lab, RT, psych nurse, social work supervisor, big data analytics lead, teacher, financial administration officer, cyanide case hardener)? Give summary @ -[No] Was smoking cessation discussed for >3mins.? @ -[No] Was critical care preformed (if so, how long)? @ -[No] Were there social determinants of health that impacted care today? How? (Homelessness, low income, unemployed, alcoholism, drug addiction, transportation, low edu. Level, literacy, decrease access to med. care, intermediate, rehab)? @ -[No] Was there de-escalation of care discussed even if they declined (Discuss DNR or withdrawal of care, Hospice)? DNR status @ -[No] What co-morbidities impacted this encounter? (DM, HTN, Smoking, COPD, CAD, Cancer, CVA, ARF, Chemo, Hep., AIDS, mental health diagnosis, sleep apnea, morbid obesity)? @ -[None] Was patient admitted / discharged? Hospital course, mention meds given and route, prescriptions, significant lab abnormalities, going to OR and other pertinent info. @ -67-year-old male presenting with chief complaint of bleeding from the hand, he has history of recent injury and surgery performed on . On physical examination there is obvious skin avulsion from the injury. Bleeding is controlled at this time. Gelfoam is placed over the abrasions. Volar splint is reapplied. Patient is instructed to follow-up with his surgeon at scheduled appointment. Follow-up with PCP. Report back to ER with any new or worsening symptoms. Discussed return parameters and answered all questions. Patient conveyed verbal understanding and agreed to the plan. I discussed this case in detail with my attending Dr. Mario Undiagnosed new problem with uncertain prognosis? @ -[No] Drug Therapy requiring intensive monitoring for toxicity (Heparin, Nitro, Insulin, Cardizem)? @ -[No] Were any procedures done? @ -Volar splint applied Diagnosis/symptom? @ -Bleeding wound Acute, or Chronic, or Acute on Chronic? @ -Acute Uncomplicated (without systemic symptoms) or Complicated (systemic symptoms)? @ -Uncomplicated Side effects of treatment? @ -[No] Exacerbation, Progression, or Severe Exacerbation? @ -[No] Poses a threat to life or bodily function? How? (Chest pain, [place], [place], pneumonia, PE, COPD, DKA, ARF, appy, cholecystitis, CVA, Diverticulitis, Homicidal, Suicidal, threat to staff... and all critical care pts) @ -[No] Disposition Clinical Impression: Bleeding from wound Disposition: HOME SELF-CARE Condition: Good Additional Instructions: With your surgeon at scheduled appointment. Report back to ER with any new or worsening symptoms. Is patient prescribed a controlled substance at d/c from ED?: No Referrals: Duy Hanson MD [Primary Care Provider] - 1-2 days Time of Disposition: 00:42
[2022-10-24 00:58] VITALS: BP 115/70; PULSE 81; RESP 19
== END 2022-10-24 00:59 | disposition home or self-care (01) ==
LOC: EC 23:16
DX: R58 Hemorrhage, not elsewhere classified (principal); M19.90 Unspecified osteoarthritis, unspecified site; F17.200 Nicotine dependence, unspecified, uncomplicated; Z79.899 Other long term (current) drug therapy; W23.0XXA Caught, crushed, jammed, or pinched between moving objects, initial encounter
CPT/HCPCS: 29125; 99283

== ENCOUNTER 2024-02-22 14:52 | Emergency (ER) | payer MEDICARE ==
[2024-02-22 14:59] VITALS: RESP 16
--- NOTE | 2024-02-22 15:28 | ED ---
Fall HPI - General Chief Complaint: Fall Stated Complaint: Fall-L shoulder pain Time Seen by Provider: 02/22/24 15:07 Source: patient, RN notes reviewed Mode of arrival: ambulatory - History of Present Illness Initial Comments: This is a 68-year-old male presenting to the emergency department for decaliter fall. States that approximately 2 hours prior to arrival he was walking outside on his porch when there is a patch of ice causing him to fall backwards and hit his head. States that he had a brief loss of consciousness a few moments. States that after the injury he began to experience a headache and mild neck pain. Patient however states that he fell onto his left shoulder. He denies presyncopal symptoms for the time of the fall, states that he tripped and this was a mechanical fall. Currently he is endorsing a headache and mild photophobia. He denies nausea, chest pain, shortness of breath, abdominal pain, difficulty breathing. Denies blood thinner use. - Related Data Home Medications Medication Instructions Recorded Confirmed Zolpidem [Ambien] 10 mg PO HS 11/26/13 02/22/24 Ibuprofen [Motrin] 800 mg PO TID PRN 12/03/15 02/22/24 HYDROcodone/APAP 10-325MG [[place] 1 tab PO TID PRN 03/11/21 02/22/24 10-325] Previous Rx's Medication Instructions Recorded Pantoprazole [Protonix] 40 mg PO DAILY 14 Days #14 tab 07/27/22 Allergies Allergy/AdvReac Type Severity Reaction Status Date / Time No Known Allergies Allergy Verified 02/22/24 15:57 Review of Systems ROS Statement: Those systems with pertinent positive or pertinent negative responses have been documented in the HPI. ROS Other: All systems not noted in ROS Statement are negative. Past Medical History Past Medical History: Cancer, Osteoarthritis (OA) Additional Past Medical History / Comment(s): "MELANOMA AND COLON CANCER-biopsy treatmentapproximately 3-4 years ago" History of Any Multi-Drug Resistant Organisms: None Reported Past Surgical History: Joint Replacement, Orthopedic Surgery Additional Past Surgical History / Comment(s): BILATERAL HIP REPLACEMENT , colon oscopy-POLYPECTOMY FOR CANCER" RIGHT SHOULDER,HEMORRHOIDECTOMY. MELANOMA LEFT HAND. left hand Past Anesthesia/Blood Transfusion Reactions: No Reported Reaction Past Psychological History: No Psychological Hx Reported Smoking Status: Current every day smoker Past Alcohol Use History: None Reported Past Drug Use History: None Reported General Exam Limitations: no limitations Head exam: Present: atraumatic, normocephalic, normal inspection Eye exam: Present: normal appearance, PERRL, EOMI. Absent: scleral icterus, conjunctival injection, periorbital swelling ENT exam: Present: normal exam, mucous membranes moist Neck exam: Present: normal inspection. Absent: tenderness, meningismus, lymphadenopathy Respiratory exam: Present: normal lung sounds bilaterally. Absent: respiratory distress, wheezes, rales, rhonchi, stridor Cardiovascular Exam: Present: regular rate, normal rhythm, normal heart sounds. Absent: systolic murmur, diastolic murmur, rubs, gallop, clicks GI/Abdominal exam: Present: soft, normal bowel sounds. Absent: distended, tenderness, guarding, rebound, rigid Neurological exam: Present: alert, oriented X3, CN II-XII intact Course Vital Signs 02/22/24 02/22/24 14:57 16:32 Temperature 97.6 F 98.1 F Pulse Rate 99 68 Respiratory 16 16 Rate Blood Pressure 162/83 152/85 O2 Sat by Pulse 98 98 Oximetry Medical Decision Making - Medical Decision Making Was pt. sent in by a medical professional or institution (, PA, TUFTER, urgent care, hospital, or usp...) When possible be specific @ -No Did you speak to anyone other than the patient for history (EMS, parent, family, police, friend...)? What history was obtained from this source @ -No Did you review nursing and triage notes (agree or disagree)? Why? @ -I reviewed and agree with nursing and triage notes Were old charts reviewed (outside hosp., previous admission, EMS record, old EKG, old radiological studies, urgent care reports/EKG's, usp records)? Report findings @ -No old charts were reviewed Differential Diagnosis (chest pain, altered mental status, abdominal pain women, abdominal pain men, vaginal bleeding, weakness, fever, dyspnea, syncope, headache, dizziness, GI bleed, back pain, seizure, CVA, palpatations, mental health, musculoskeletal)? @ -Concussion, intracranial hemorrhage, cervical spine fracture, hematoma, this list is not all inclusive EKG interpreted by me (3pts min.). @ -None X-rays interpreted by me (1pt min.). @ -None done CT interpreted by me (1pt min.). @ -CT of the head and C-spine no acute osseous abnormality U/S interpreted by me (1pt. min.). @ -None done What testing was considered but not performed or refused? (CT, X-rays, U/S, labs)? Why? @ -None What meds were considered but not given or refused? Why? @ -None Did you discuss the management of the patient with other professionals (professionals i.e. , PA, TUFTER, lab, RT, psych nurse, social studies teacher, network operations center engineer, teacher, finance officer, keycase assembler)? Give summary @ -No Was smoking cessation discussed for >3mins.? @ -No Was critical care preformed (if so, how long)? @ -No Were there social determinants of health that impacted care today? How? (Homelessness, low income, unemployed, alcoholism, drug addiction, transportation, low edu. Level, literacy, decrease access to med. care, fdc, r ehab)? @ -No Was there de-escalation of care discussed even if they declined (Discuss DNR or withdrawal of care, Hospice)? DNR status @ -No What co-morbidities impacted this encounter? (DM, HTN, Smoking, COPD, CAD, Cancer, CVA, ARF, Chemo, Hep., AIDS, mental health diagnosis, sleep apnea, morbid obesity)? @ -None Was patient admitted / discharged? Hospital course, mention meds given and route, prescriptions, significant lab abnormalities, going to OR and other pertinent info. @ -Discharge. 60-year-old male presenting after a fall. Patient's vitals are stable on arrival. Neurological examination no acute deficits. Patient is provided with pain medication evaluated via CT brain neck with a history of loss consciousness during the time of head injury. CT unremarkable. Concussion care discussed with patient at bedside. He is provided with a work note. Recommend patient follow-up with primary care provider for further evaluation. Discussed with Dr. Virgen Undiagnosed new problem with uncertain prognosis? @ -No Drug Therapy requiring intensive monitoring for toxicity (Heparin, Nitro, Insulin, Cardizem)? @ -No Were any procedures done? @ -No Diagnosis/symptom? @ -concussion, fall, headache Acute, or Chronic, or Acute on Chronic? @ -acute Uncomplicated (without systemic symptoms) or Complicated (systemic symptoms)? @ -uncomplicated Side effects of treatment? @ -No Exacerbation, Progression, or Severe Exacerbation? @ -No Poses a threat to life or bodily function? How? (Chest pain, [place], [place], pneumonia, PE, COPD, DKA, ARF, appy, cholecystitis, CVA, Diverticulitis, Homicidal, Suicidal, threat to staff... and all critical care pts) @ -No Disposition Clinical Impression: Fall, Concussion Disposition: HOME SELF-CARE Condition: Good Instructions (If sedation given, give patient instructions): Concussion (ED) Additional Instructions: Please return to the Emergency Department if symptoms worsen or any other concerns. Is patient prescribed a controlled substance at d/c from ED?: No Referrals: Duy Hanson MD [Primary Care Provider] - 1-2 days Time of Disposition: 16:17
--- NOTE | 2024-02-22 16:02 | CT ---
EXAMINATION TYPE: CT brain cspine wo con DATE OF EXAM: 02/22/2024 3:40 PM COMPARISON: None. CLINICAL INDICATION: Male, 68 years old with history of fall, +LOC, headache; Fall on ice, +LOC TECHNIQUE: Brain: Multiple axial CT images of the brain were obtained without IV contrast. Cspine: Axial CT images from the skull base to the inferior aspect of T2 we obtained without intraven ous contrast. Coronal and sagittal reformatted images were also reviewed. . CT DLP: 1393.6 mGycm, Automated exposure control for dose reduction was used. FINDINGS: Brain: Extra-axial spaces: No abnormal extra-axial fluid collections. Ventricular system: Within normal limits Cerebral parenchyma: No acute intraparenchymal hemorrhage or mass effect. The beltrán-white junction is well differentiated. Cerebellum: Unremarkable. Mass effect: No evidence of midline shift. Intracranial vasculature: unremarkable Soft tissues: Normal. Calvarium/osseous structures: No depressed skull fracture. Paranasal sinuses and mastoid air cells: Clear. Visualized orbits: Orbital contents are intact. Cervical spine: Fracture: None. Osseous structures: Multilevel degenerative disc disease changes with endplate spurring and disc oste ophyte complex's. Fixation hardware in the anterior spine at C5 C6 C7 appears intact. There is ankylo sis and fusion of these levels. Grade I anterolisthesis of C7 on T1. Mild spinal canal stenosis. Vertebral alignment: Within normal limits. Spinal canal/Neural Foramina: No evidence of significant spinal canal narrowing. No evidence for sign ificant neural foraminal stenosis. Neck soft tissues: Prevertebral soft tissues are within normal limits. Other: The airway is patent. The lung apices are clear. IMPRESSION: 1. No acute intracranial process. 2. No evidence of cervical spine fracture. 3. Mild multilevel degenerative disc disease. 4. Fixation hardware in the anterior spine at C5 C6 C7 appears intact. There is fusion of these leve ls. 5. Grade I anterolisthesis of C7 on T1. Mild spinal canal stenosis. [facility], , 02/22/2024 3:59 PM
[2024-02-22] MEDS: HYDROmorphone 0.5 MG/0.5 ML SYRINGE IM STA (16:25)
[2024-02-22 16:41] VITALS: BP 152/85; PULSE 68; TEMP 98.1
== END 2024-02-22 16:44 | disposition home or self-care (01) ==
LOC: EC 14:52
DX: S06.0X1A Concussion with loss of consciousness of 30 minutes or less, initial encounter (principal); F17.200 Nicotine dependence, unspecified, uncomplicated; W18.09XA Striking against other object with subsequent fall, initial encounter; Y93.01 Activity, walking, marching and hiking
CPT/HCPCS: 72125; 70450; 99283; 96372; J1171

== ENCOUNTER → 2024-09-19 | Outpatient (CLI) | payer MEDICARE ==
[2024-09-19 11:48] LABS: African American GFR (CKD) 84 (>60 ml/min/1.73 sqM); Blood Urea Nitrogen 15 mg/dL (9-20); Non-African American GFR(CKD) 73 (>60 ml/min/1.73 sqM)
--- NOTE | 2024-09-19 12:54 | CT ---
EXAMINATION TYPE: CT brain wo/w con DATE OF EXAM: 09/19/2024 12:17 PM COMPARISON: 02/22/2024 CLINICAL INDICATION: Male, 69 years old with history of R51.9 headaches TECHNIQUE: CT of the head before and after administration of 100 mL Isovue 300 IV contrast. Coronal a nd sagittal reconstructions performed. CT DLP: 2369 mGycm, Automated exposure control for dose reduction was used. FINDINGS: There is no evidence of acute intracranial hemorrhage, acute ischemic changes, mass, mass-effect, or extra-axial fluid collection. There is no effacement of cerebral sulci or basal subarachnoid cister ns. There is no hydrocephalus. There is no midline shift. Gomes-white matter distinction is preserv ed. Scattered mild subcortical white matter hypodensities suggesting mild chronic small vessel ischemic d isease. No enhancing intracranial lesions. Dural venous sinuses are patent. A nondominant right vertebral art more likely terminates as a PICA branch. Paranasal sinuses and mastoid air cells well pneumatized. Some cerumen within the right external nella tory canal. Orbits and globes are intact. IMPRESSION: No acute intracranial abnormality or enhancing intracranial lesion seen. [facility], , 09/19/2024 12:51 PM
== END | disposition home or self-care (01) ==
LOC: RADCTMAIN 11:12
PROVIDERS: ATTEND Family Medicine
DX: R51.9 Headache, unspecified (principal)
CPT/HCPCS: 82565; 84520; 70470; 36415; Q9967